=== PATIENT | female | born 1955 | race Caucasian/White ===

== ENCOUNTER 2019-08-16 05:27 | Outpatient (CLI) | payer OTHER | END 2019-08-16 05:28 | disposition critical access hospital (66) | LOC: EMS 05:27 | PROVIDERS: ATTEND Surgery | DX: R50.9 Fever, unspecified (principal); R05 Cough; R11.2 Nausea with vomiting, unspecified; R29.6 Repeated falls | CPT/HCPCS: A0425; A0427 ==

== ENCOUNTER 2019-08-16 05:29 | Inpatient (IN) | payer OTHER ==
[2019-08-16 06:42] LABS: BASOPHILS # (AUTO) 0.1 10^3/uL (0.0-0.1); BASOPHILS % (AUTO) 0.4 %; EOSINOPHILS # (AUTO) 0.3 10^3/uL (0.0-0.7); EOSINOPHILS % (AUTO) 2.1 %; LYMPHOCYTES # (AUTO) 0.7 10^3/uL (1.5-3.5); LYMPHOCYTES % (AUTO) 5.5 %; MEAN CORPUSCULAR HEMOGLOBIN 28.8 pg (27.0-31.0); MEAN CORPUSCULAR HGB CONC 33.3 g/dL (32.0-36.0); MEAN CORPUSCULAR VOLUME 86.4 fL (81.0-99.0); MEAN PLATELET VOLUME 10.6 fL (7.9-10.8); MONOCYTES # (AUTO) 1.2 10^3/uL (0.0-1.0); MONOCYTES % (AUTO) 9.2 %; NEUTROPHILS # (AUTO) 10.4 10^3/uL (1.5-6.6); NEUTROPHILS % (AUTO) 82.2 %; PLT - PLATELET COUNT 228 10^3/uL (130-450); RED BLOOD COUNT 5.21 10^6/uL (4.20-5.40); RED CELL DISTRIBUTION WIDTH 11.9 % (12.0-15.0); WHITE BLOOD COUNT 12.6 x10^3/uL (4.8-10.8)
[2019-08-16 06:50] LABS: ALBUMIN 3.3 g/dL (3.2-5.5); ALBUMIN/GLOBULIN RATIO 0.9 (1.0-2.2); BILIRUBIN,TOTAL 1.3 mg/dL (0.2-1.0); CALCIUM 8.1 mg/dL (8.5-10.3); CREATININE 1.8 mg/dL (0.4-1.0)
[2019-08-16 07:28] LABS: PLATELET ESTIMATE, MANUAL NORMAL (130-450,000) (NORMAL); PLATELET MORPHOLOGY NORMAL APPEARANCE (NORMAL); RBC MORPHOLOGY (MULTIPLE) NORMAL APPEARANCE (NORMAL)
--- NOTE | 2019-08-16 07:39 | XRAY Report ---
Reason: cough, fatigue, hypoxia Procedure Date: 08/16/2019 Accession Number: [id number] / [id number] Procedure: XR - Chest 2 View X-Ray CPT Code: 75291 Final Report FULL RESULT: EXAM: CHEST RADIOGRAPHY EXAM DATE: 08/16/2019 07:02 AM. CLINICAL HISTORY: Cough, fatigue, hypoxia. COMPARISON: None. TECHNIQUE: 2 views. FINDINGS: Lungs/Pleura: No focal opacities evident. No peribronchial cuffing or interstitial abnormality. No pleural effusion. No pneumothorax. Normal volumes. Mediastinum: Heart size is normal. Retrocardiac density measuring about 9 cm which may represent a hiatal hernia. Other: None. IMPRESSION: 1. Lungs are clear. 2. Approximately 9 cm retrocardiac density which may represent a hiatal hernia. CT or esophagram could be used to further assess. RADIA
[2019-08-16] MEDS ORDERED: POTASSIUM CHLORIDE 20 MEQ TABLET PO ONE (07:51)
--- NOTE | 2019-08-16 07:52 | ED Physician Documentation ---
PD HPI NVD - Stated complaint Stated Complaint: FEVER, N/V/D - Chief complaint Chief Complaint: Abd Pain - History obtained from History obtained from: Patient - History of Present Illness Timing - onset: How many days ago (5) Timing - duration: Days (5) Timing - details: Gradual onset, Still present Associated symptoms: Dizzy, Near syncope / syncope, Loss of appetite Contributing factors: No: Sick contact, Bad food, Travel, Recent antibiotics, Alcohol use, Anticoagulated, Diabetes Improved by: Vomiting Similar symptoms before: Has not had sx before Recently seen: Not recently seen - Additonal information Additional information: 63-year-old female with a history of recurrent shingles has developed symptoms about 5 days ago and she has now developed nausea and vomiting and diarrhea that occurred over the past 5 days. She today had a syncopal episode on the way into the bathroom. She fell and hit her head. She is uncertain if she lost consciousness. She is having some trouble concentrating and remembering details. She states that her urine is foul-smelling and it hurts to urinate. She has started valacyclovir 5-day get this ago for shingles on her lower back. She describes having migrating shingles and frequent episodes. Surgically she has had a Janna, appendectomy and hysterectomy previously Review of Systems Constitutional: reports: Myalgias, Fatigue. denies: Fever, Chills Eyes: denies: Decreased vision Ears: denies: Ear pain Nose: denies: Rhinorrhea / runny nose, Congestion Throat: denies: Sore throat Cardiac: denies: Chest pain / pressure, Palpitations Respiratory: reports: Cough. denies: Dyspnea GI: reports: Abdominal Pain, Nausea, Vomiting : reports: Dysuria, Frequency Skin: denies: Rash Musculoskeletal: reports: Neck pain, Back pain Neurologic: denies: Generalized weakness, Focal weakness, Numbness PD PAST MEDICAL HISTORY - Past Medical History Cardiovascular: None Respiratory: Sleep apnea, CPAP use Endocrine/Autoimmune: HyPOthyroidism GI: GERD Psych: None Musculoskeletal: Osteoarthritis Derm: Eczema, Rosacea Other Past Medical History: Shingles - Past Surgical History General: Cholecystectomy, Appendectomy Ortho: Arthroscopic surgery /[employer]WARE[employer]EL[employer]: section, Tubal ligation, Hysterectomy, Oophrectomy, Other Neuro: Other HEENT: Tonsil/Adenoidectomy - Present Medications Home Medications: Ambulatory Orders Medication Instructions Recorded Confirmed Cyclobenzaprine [Flexeril] 10 mg PO TID PRN 03/26/13 03/26/13 Hyoscyamine [Levsin] 0.125 mg SL BID PRN 03/26/13 03/26/13 Levothyroxine [Synthroid] 75 mcg PO QDAC 03/26/13 03/26/13 Losartan [Cozaar] 50 mg PO DAILY 03/26/13 03/26/13 Pregabalin [Lyrica] 150 TID 03/26/13 03/26/13 Zolpidem [Ambien] 10 mg PO HS 03/26/13 03/26/13 oxyCODONE [Roxicodone] 5 mg PO Q4-6H PRN 04/08/13 04/08/13 oxyCODONE/ACET 5/325 [Percocet 5 1 each PO Q4-6H 04/08/13 04/08/13 mg/325 mg] - Allergies Allergies/Adverse Reactions: Allergies Allergy/AdvReac Type Severity Reaction Status Date / Time adhesive Allergy Severe Rash Verified 08/16/19 05:35 latex Allergy Severe Rash Verified 08/16/19 05:35 morphine Allergy Severe Respiratory Verified 08/16/19 05:35 Sulfa (Sulfonamide Allergy Severe anaphylaxis Verified 08/16/19 05:35 Antibiotics) - Social History Does the pt smoke?: Yes Smoking Status: Current every day smoker Does the pt drink ETOH?: No Does the pt have substance abuse?: No - Immunizations Immunizations are current?: No - POLST Patient has POLST: No PD ED PE NORMAL - Vitals Vital signs reviewed: Yes (tachy and hypertensive ) - General General: Alert and oriented X 3, No acute distress, Well developed/nourished - HEENT HEENT: PERRL, EOMI - Cardiac Cardiac: No murmur, Other (tachy to 100) - Respiratory Respiratory: No respiratory distress, Clear bilaterally - Abdomen Abdomen: Soft, Other (mild epigastric tenderness.) - Back Back: No CVA TTP, No spinal TTP - Derm Derm: Normal color, Warm and dry, No rash (specifically no changes to the skin over the lower back where the shingles pain is. ) - Extremities Extremities: No deformity, No edema, No calf tenderness / cord - Neuro Neuro: Alert and oriented X 3, featherer 2-12 intact, No motor deficit, No sensory deficit, Normal speech Eye Opening: Spontaneous Motor: Obeys Commands Verbal: Oriented GCS Score: 15 - Psych Psych: Normal mood, Normal affect Results - Vitals Vitals: Vital Signs - 24 hr 08/16/19 08/16/19 08/16/19 05:32 06:03 09:13 Temperature 36.8 C 37.7 C H Heart Rate 121 H 121 H 108 H Respiratory 20 28 H 20 Rate Blood Pressure 115/68 107/71 108/79 O2 Saturation 90 L 99 94 Oxygen O2 Source Nasal cannula - Labs Labs: Laboratory Tests 08/16/19 08/16/19 08/16/19 05:50 05:50 05:50 WBC 12.6 H RBC 5.21 Hgb 15.0 Hct 45.0 MCV 86.4 MCH 28.8 MCHC 33.3 RDW 11.9 L Plt Count 228 MPV 10.6 Neut # (Auto) 10.4 H Lymph # (Auto) 0.7 L Nuckolls # (Auto) 1.2 H Eos # (Auto) 0.3 Baso # (Auto) 0.1 Absolute Nucleated RBC 0.00 Nucleated RBC % 0.0 Manual Slide Review Indicated WBC Morphology Platelet Estimate NORMAL (130-450,000) Platelet Morphology NORMAL APPEARANCE RBC Morph Micro Appear NORMAL APPEARANCE Sodium 133 L Potassium 2.7 L Chloride 96 L Carbon Dioxide 23 Anion Gap 14.0 H BUN 20 Creatinine 1.8 H Estimated GFR (MDRD) 28 L Glucose 141 H Lactic Acid 1.7 Calcium 8.1 L Total Bilirubin 1.3 H AST 46 H ALT 38 Alkaline Phosphatase 82 Total Protein 7.0 Albumin 3.3 Globulin 3.7 Albumin/Globulin Ratio 0.9 L Lipase 28 Urine Color Urine Clarity Urine pH Ur Specific Shushan Urine Protein Urine Glucose (UA) Urine Ketones Urine Occult Blood Urine Nitrite Urine Bilirubin Urine Urobilinogen Ur Leukocyte Esterase Urine RBC Urine WBC Ur Squamous Epith Cells Urine Bacteria Ur Microscopic Review Urine Culture Comments 08/16/19 09:42 WBC RBC Hgb Hct MCV MCH MCHC RDW Plt Count MPV Neut # (Auto) Lymph # (Auto) Nuckolls # (Auto) Eos # (Auto) Baso # (Auto) Absolute Nucleated RBC Nucleated RBC % Manual Slide Review WBC Morphology Platelet Estimate Platelet Morphology RBC Morph Micro Appear Sodium Potassium Chloride Carbon Dioxide Anion Gap BUN Creatinine Estimated GFR (MDRD) Glucose Lactic Acid Calcium Total Bilirubin AST ALT Alkaline Phosphatase Total Protein Albumin Globulin Albumin/Globulin Ratio Lipase Urine Color YELLOW Urine Clarity CLOUDY Urine pH 6.0 Ur Specific Shushan 1.025 Urine Protein 100 H Urine Glucose (UA) NEGATIVE Urine Ketones NEGATIVE Urine Occult Blood MODERATE H Urine Nitrite NEGATIVE Urine Bilirubin NEGATIVE Urine Urobilinogen 0.2 (NORMAL) Ur Leukocyte Esterase LARGE H Urine RBC 11-25 H Urine WBC >25 H Ur Squamous Epith Cells MANY Squamous H Urine Bacteria Moderate H Ur Microscopic Review INDICATED Urine Culture Comments NOT INDICATED - Rads (name of study) CT chest w/o Radiology: Prelim report reviewed (Impression: 1. Moderate sized hiatal hernia corresponding to the retrocardiac density seen on same-day chest radiograph. 4 mm sub-solid nodule in the anterior left upper lobe. No routine follow-up imaging is needed for an incidental nodule with these characteristics per 2017 Fleischner cytocide the guidelines however, these guidelines do not apply of the patient has a known history of malignancy.), EMP read indepedently, See rad report CT head without Radiology: Prelim report reviewed (Impression: 1. No acute intracranial abnormality is identified. 2. no acute fracture.), EMP read indepedently, See rad report CT cervical spine Radiology: Prelim report reviewed (Impression: 1. No acute cervical spine abnormalities are identified. Mild degenerative changes of the cervical spine.), EMP read indepedently, See rad report 1 view chest Radiology: Prelim report reviewed (Impression: 1. Lungs are clear. 2. Approximately 9 cm retrocardiac density which may represent a hiatal hernia. CT or esophagram could be useful to further assess.), EMP read indepedently, See rad report Procedures - IVC sono (time) 0740 Bedside IVC sono: IVC measures (cm) (1.11), Dehydration (est 1-2 liter deficit after one liter in.) PD MEDICAL DECISION MAKING - ED course Complexity details: reviewed old records, reviewed results, re-evaluated patient, considered differential, d/w patient ED course: 63-year old female with 5 days of nausea and vomiting is profoundly dehydrated o n arrival to the emergency department and she has had a syncopal episode and head injury. She arrives tachycardic and hypoxic and she is provided saline hydration as well as potassium. She is eventually able to produce urine which shows obvious infection. She is administered Rocephin intravenously. She remains somewhat confused CT of head and neck are without finding and admission to the hospitalist is sought. Departure - Departure Disposition: 66 [facility] DC/Xfer Clinical Impression: Syncope and collapse, Dehydration Urinary tract infection Qualifiers: Urinary tract infection type: acute cystitis Hematuria presence: without hematuria Qualified Code(s): N30.00 - Acute cystitis without hematuria Altered mental status Qualifiers: Altered mental status type: transient alteration of awareness Qualified Code(s): R40.4 - Transient alteration of awareness
[2019-08-16] MEDS: SODIUM CHLORIDE 0.9% 1,000 ML IV ONE (08:57)
--- NOTE | 2019-08-16 09:06 | CT Report ---
Reason: syncope head injury ALOC Procedure Date: 08/16/2019 Accession Number: [id number] / [id number] Procedure: CT - HEAD WO CPT Code: Final Report FULL RESULT: EXAM: CT HEAD EXAM DATE: 08/16/2019 08:11 AM. CLINICAL HISTORY: Syncope head injury ALOC. Neck pain. Hit right frontal/parietal area. COMPARISON: None. TECHNIQUE: Multiaxial CT images were obtained from the foramen magnum to the vertex. Reformats: Sagittal and coronal. IV contrast: None. In accordance with CT protocol optimization, one or more of the following dose reduction techniques were utilized for this exam: automated exposure control, adjustment of mA and/or KV based on patient size, or use of iterative reconstructive technique. FINDINGS: Parenchyma: No intraparenchymal hemorrhage. No evidence of mass, midline shift, or CT findings of infarction. Navas-white differentiation is distinct. Extraaxial Spaces: Normal for age. No subdural or epidural collections identified. Ventricles: Normal in size and position. Sinuses and Orbits: Osteoma within the left anterior ethmoid and left frontal sinus. Otherwise paranasal sinuses and mastoid air cells are clear. Bones: No evidence of fracture or calvarial defect. Other: Globes and orbits are unremarkable. IMPRESSION: 1. No acute intracranial abnormality is identified. 2. No acute fracture. RADIA
--- NOTE | 2019-08-16 09:07 | CT Report ---
Reason: mass on x-ray hypoxia Procedure Date: 08/16/2019 Accession Number: [id number] / [id number] Procedure: CT - CHEST WO CPT Code: Final Report FULL RESULT: EXAM: CT CHEST EXAM DATE: 08/16/2019 08:30 AM. CLINICAL HISTORY: Mass on chest x-ray. Hypoxia. COMPARISONS: CHEST 2 VIEW 08/16/2019 6:51 AM. TECHNIQUE: Routine helical CT imaging was performed through the chest. IV contrast: None. Reconstructions: Coronal and sagittal. In accordance with CT protocol optimization, one or more of the following dose reduction techniques were utilized for this exam: automated exposure control, adjustment of mA and/or KV based on patient size, or use of iterative reconstructive technique. FINDINGS: Thyroid Gland: Unremarkable as visualized. Lungs/Pleura: 4 mm subsolid nodule in the anterior left upper lobe (4/133). Right upper and lower lobes and posterior right middle lobe. No focal infiltrate, pleural effusion, or pneumothorax. Heart and Great Vessels: Heart size is normal. No pericardial effusion. Mild atherosclerotic calcifications within the aortic arch. Variant aortic arch anatomy, with common origin of the innominate and left common carotid arteries. No aortic aneurysm. Thoracic Lymph Nodes: No adenopathy. Visualized Upper Abdomen: Moderate sized hiatal hernia containing fat and the proximal stomach. Post cholecystectomy. Bones: No significant abnormality. Other: Surgical clips in the bilateral breasts. IMPRESSION: 1. Moderate-sized hiatal hernia corresponding to the retrocardiac density seen on same-day chest radiograph. 2. 4 mm subsolid nodule in the anterior left upper lobe. No routine follow-up imaging is needed for an incidental nodule with these characteristics per 2017 Fleischner Society guidelines, however, these guidelines do not apply if the patient has a known history of malignancy. RADIA
--- NOTE | 2019-08-16 09:09 | CT Report ---
Reason: syncope head injury neck pain Procedure Date: 08/16/2019 Accession Number: [id number] / [id number] Procedure: CT - CERVICAL SPINE WO CPT Code: Final Report FULL RESULT: EXAM: CT CERVICAL SPINE WITHOUT CONTRAST DATE: 08/16/2019 08:11 AM. HISTORY: Syncope head injury neck pain. COMPARISONS: None. TECHNIQUE: Thin-section axial images were acquired of the cervical spine without contrast. Post-processing: Coronal and sagittal reformats. Other: None. In accordance with CT protocol optimization, one or more of the following dose reduction techniques were utilized for this exam: automated exposure control, adjustment of mA and/or KV based on patient size, or use of iterative reconstructive technique. FINDINGS: Alignment: No scoliosis or spondylolisthesis. Bones: Degenerative osteophyte formation. Hemangioma within C3. Interspace Levels/Facets: Mild degenerative changes with disk space narrowing at C5-C6 and C6-C7. Mild multilevel facet arthropathy. Musculature: Normal. No fatty atrophy. Other: The paravertebral and prevertebral soft tissues are unremarkable. Lung apices are clear. Airways are clear. Vascular calcifications. No enlarged cervical lymph nodes. Skull base is unremarkable. IMPRESSION: 1. No acute cervical spine abnormalities are identified. 2. Mild degenerative changes of the cervical spine. RADIA
[2019-08-16 09:50] LABS: BILIRUBIN,URINE NEGATIVE (NEGATIVE); GLUCOSE, URINE (UA) NEGATIVE (NEGATIVE); KETONES,URINE (UA) NEGATIVE (NEGATIVE); LEUKOCYTE ESTERASE, URINE LARGE (NEGATIVE); NITRITE,URINE NEGATIVE (NEGATIVE); OCCULT BLOOD,URINE MODERATE (NEGATIVE); PROTEIN,URINE 100 mg/dL (NEGATIVE); UROBILINOGEN,URINE 0.2 (NORMAL) E.U./dL (NORMAL)
[2019-08-16 09:52] LABS: CLARITY,URINE CLOUDY (CLEAR)
[2019-08-16 09:56] LABS: SQUAMOUS EPITHELIAL CELL,UR MANY Squamous (<= Few)
[2019-08-16 09:57] LABS: BACTERIA,URINE Moderate /HPF (None Seen)
[2019-08-16] MEDS ORDERED: cefTRIAXone 1 GM in SODIUM CHLORIDE 0.9% MINIBAG 100 ML IV STA (10:03)
[2019-08-16] MEDS ORDERED: PHENAZOPYRIDINE 100 MG TABLET PO SCH (13:00)
--- NOTE | 2019-08-16 13:24 | PHARMACY PROGRESS NOTE ---
- Best Possible Medication History Admit Date and Time: 08/16/19 1216 Processed by: Pharmacy Medication History completed: Yes Patient Interview: Pt unable to participate Secondary Source(s): Pharmacy records, Insurance records As the person ultimately responsible for medication therapy, providers are able to order a medication from an existing home medication list in [facility] via the "Reconcile Routine" prior to Confirmation of that medication by customer support professional. Such practice is discouraged except when the physician, in their clinical judgment, deems that a medical need exists for a medication without regard to previous use.
[2019-08-16] MEDS: POTASSIUM CHLOR 10 MEQ/100 ML 10 MEQ/100 ML BAG IV SCH ×4 (14:06→17:53)
[2019-08-16] MEDS: D5NS W/20 MEQ KCL 1,000 ML IV SCH ×2 (14:06→23:06)
[2019-08-16] MEDS: valACYclovir 500 MG TABLET PO SCH (14:07)
[2019-08-16] MEDS: PREGABALIN 25 MG CAPSULE PO SCH ×2 (14:08→21:20)
[2019-08-16] MEDS: PREGABALIN 100 MG CAPSULE PO SCH ×2 (14:45→21:21)
--- NOTE | 2019-08-16 16:20 | HISTORY & PHYSICAL EXAMINATION ---
DATE OF SERVICE: 08/16/2019 Physician: Kika Mcmillan MD HISTORY OF PRESENT ILLNESS: This is a 63-year-old, white female with a history of shingles, for which she was recently started on valacyclovir. She also has a history of Synthroid, glucoma and hypertension, and is on HCTZ and an ARB. Patient called an ambulance after feeling weak and having a syncopal episode, was walking and has syncope and hit her head. She has been having 3 days of nausea, vomiting and diarrhea and the ambulance documented a fever at home of 102.5. She presented to the emergency room by ambulance, where she was found to have tachycardia with a heart rate of 121, fever of 37.7 which later increased to 40.2 degrees centigrade, and she did have desaturation to 88% on room air. She did admit to a cough but was confused and disoriented in the ER and not steady on her feet when trying to go to the bathroom in the emergency room. Her workup shows that she has a urinary tract infection with abnormal urinalysis, hypokalemia and acute kidney injury. She had imaging done of her head and C- spine because of the syncope, and this showed no acute findings. She has been started on IV fluids, potassium replacement and IV antibiotics. PAST MEDICAL HISTORY: Hypertension, hypothyroidism, Glaucoma, recent shingles. MEDICATIONS 1. Flexeril 10 mg t.i.d. p.r.n. muscle spasm. 2. HCTZ 25 mg daily. 3. Losartan 100 mg daily. 4. Levothyroxine 75 mcg daily. 5. Lyrica 150 mg t.i.d. 6. Valacyclovir 500 mg b.i.d. 7. Ambien 10 mg q.p.m. p.r.n. insomnia. 8. Trusopt eye drops 9. Latanoprost eye drops 10. Timolol eye drops FAMILY HISTORY: No inherited diseases. SOCIAL HISTORY: She lives with her . Details of her social history are currently not available because she is alone in the room and still confused. REVIEW OF SYSTEMS: A comprehensive review of systems was performed and the pertinent positives are in the HPI, the rest are negative. PHYSICAL EXAMINATION GENERAL: White female who is responding and talkative, but is confused and disoriented. VITAL SIGNS: Blood pressure 110/58, heart rate now 110 in sinus tachycardia, temperature 1 hour ago was 40.2 centigrade, respiratory rate 28, oxygen saturation 96% on 3 liters of oxygen. HEENT: Reveals dry oral mucosa. NECK: No JVD. CHEST: Clear. HEART: Tachycardic. No murmurs. ABDOMEN: Soft, nontender. EXTREMITIES: No clubbing, cyanosis or edema. NEUROLOGIC: Generalized disorientation, nonfocal muscle exam. LABORATORY DATA: Sodium 133, potassium 2.7, anion gap 14, BUN 20, creatinine 1.8, glucose 141. Lactic acid 1.7, magnesium 2.0, bilirubin 1.3, AST 46 with normal ALT of 38, lipase normal at 28. White blood count 12.6, hemoglobin 15, platelet count 228. There is a left shift of neutrophils. Urinalysis: High protein, moderate occult blood, large leukocyte esterase, negative nitrite and moderate bacteria present. Chest x-ray: No active pulmonary disease. C-spine and head CT: No evidence of trauma or bleeding. Chest CT was done, which shows a hiatal hernia in the thorax and an incidental nodule in the left upper lobe, no infiltrate. No EKG was done. IMPRESSION/DIAGNOSES 1. Severe sepsis by virtue of elevated white blood count, urinary tract infection and organ dysfunction. 2. Urinary tract infection. 3. Dehydration. 4. Acute kidney injury. 5. Nausea, vomiting. 6. Diarrhea. 7. Syncope. 8. Hypokalemia. 9. Hyponatremia. 10. Cough 11. Desaturation of oxygen 12. Altered mental status/confusion. 13. Shingles. 14. Hypothyroidism. 15. History of hypertension. 16. Elevated bilirubin. PLAN: Admit the patient to telemetry, medical/surgical inpatient status. Continue with IV fluids aggressively. Replace potassium with iv runners. Follow her electrolytes daily. Obtain blood cultures and await the urine that was sent for culture. Continue with her empiric IV ceftriaxone treatment. Obtain cultures of the diarrheal stools. She was swabbed for COVID because of the desaturation and fever and cough, and therefore will begin isolation precautions. Continue with her medications for thyroid replacement and shingles, but hold her HCTZ and losartan since there is a need for volume replacement currently. Follow her liver function tests regarding the elevated bilirubin, but this may be a phase reactant. Treat with antiemetics p.r.n. and only a clear liquid diet currently, then advance diet as tolerated. CODE STATUS: FULL CODE. DEEP VENOUS THROMBOSIS PROPHYLAXIS: SCDs. ATTESTATION: The patient is expected to be discharged or transferred to another facility within 96 hours: Yes. cc: Ihsan Mckeon MD TD: 08/16/2019 16:02 MTDD
[2019-08-16] MEDS: SODIUM CHLORIDE FLUSH 0.9% 10 ML SYRINGE IVP SCH (17:08)
[2019-08-16] MEDS: ACETAMINOPHEN 325 MG TABLET PO PRN (20:25)
[2019-08-16] MEDS: FAMOTIDINE 20 MG/2 ML SYRINGE IVP SCH (21:20)
[2019-08-16] MEDS: LATANOPROST 0.005% OPHTH DROPS EACHEYE SCH (21:21)
[2019-08-16] MEDS: ZOLPIDEM 5 MG TABLET PO SCH (21:40)
[2019-08-17] MEDS ORDERED: SODIUM CHLORIDE 0.9% 1,000 ML IV ONE ×3 (00:49→07:44)
[2019-08-17] MEDS: SODIUM CHLORIDE FLUSH 0.9% 10 ML SYRINGE IVP SCH ×4 (00:59→21:47)
[2019-08-17] MEDS: valACYclovir 500 MG TABLET PO SCH ×2 (00:59→13:31)
[2019-08-17] MEDS ORDERED: SODIUM CHLORIDE 0.9% 500 ML IV ONE ×2 (02:08→07:44)
[2019-08-17] MEDS ORDERED: VANCOMYCIN INJ 1.25 GM in SODIUM CHLORIDE 0.9% 250 ML IV SCH (03:00)
[2019-08-17] MEDS ORDERED: PIPERACILLIN/TAZOBACTAM 3.375 GM in SODIUM CHLORIDE 0.9% MINIBAG 100 ML IV ONE (03:00)
--- NOTE | 2019-08-17 03:43 | XRAY Report ---
Reason: hypoxia Procedure Date: 08/17/2019 Accession Number: [id number] / [id number] Procedure: XR - Chest 1 View X-Ray CPT Code: 06126 Final Report FULL RESULT: EXAM: CHEST RADIOGRAPHY EXAM DATE: 08/17/2019 02:54 AM. CLINICAL HISTORY: Hypoxia. COMPARISON: CHEST WO 08/16/2019 8:16 AM CHEST 2 VIEW 08/16/2019 6:51 AM. TECHNIQUE: 1 view. FINDINGS: Lungs/Pleura: New interstitial opacities bilaterally. No focal consolidation, effusion, or pneumothorax. Mediastinum: Stable hiatal hernia. No cardiomegaly. Atherosclerotic calcifications. Other: None. IMPRESSION: New interstitial opacities bilaterally, without evidence of congestive failure. Consider viral or atypical infectious process in the appropriate clinical scenario. RADIA
[2019-08-17] MEDS: ACETAMINOPHEN 325 MG TABLET PO PRN ×4 (05:36→22:57)
[2019-08-17 06:41] LABS: BASOPHILS % (AUTO) 0.4 %; EOSINOPHILS % (AUTO) 1.2 %; HGB - HEMOGLOBIN 10.7 g/dL (12.0-16.0); LYMPHOCYTES % (AUTO) 4.1 %; MEAN CORPUSCULAR HEMOGLOBIN 28.6 pg (27.0-31.0); MEAN CORPUSCULAR HGB CONC 32.5 g/dL (32.0-36.0); MEAN PLATELET VOLUME 10.6 fL (7.9-10.8); MONOCYTES % (AUTO) 10.1 %; NEUTROPHILS % (AUTO) 83.7 %; PLT - PLATELET COUNT 160 10^3/uL (130-450); RED BLOOD COUNT 3.74 10^6/uL (4.20-5.40); RED CELL DISTRIBUTION WIDTH 12.1 % (12.0-15.0); WHITE BLOOD COUNT 9.9 x10^3/uL (4.8-10.8)
[2019-08-17 06:51] LABS: ALBUMIN 2.2 g/dL (3.2-5.5); ALBUMIN/GLOBULIN RATIO 0.8 (1.0-2.2); BILIRUBIN,TOTAL 0.7 mg/dL (0.2-1.0); CALCIUM 6.7 mg/dL (8.5-10.3); CREATININE 1.6 mg/dL (0.4-1.0); MAGNESIUM 1.7 mg/dL (1.7-2.8)
[2019-08-17 06:54] LABS: INR 1.3 (0.8-1.2); PT - PROTHROMBIN TIME 14.3 secs (9.9-12.6)
[2019-08-17] MEDS: PREGABALIN 25 MG CAPSULE PO SCH ×3 (06:58→21:41)
[2019-08-17] MEDS: LEVOTHYROXINE 75 MCG TABLET PO SCH (06:58)
[2019-08-17] MEDS: PREGABALIN 100 MG CAPSULE PO SCH ×3 (06:58→21:40)
[2019-08-17] MEDS: PIPERACILLIN/TAZOBACTAM 3.375 GM in SODIUM CHLORIDE 0.9% MINIBAG 100 ML IV SCH ×3 (07:00→22:58)
[2019-08-17 07:01] LABS: ABNORMAL LYMPHS % (MANUAL) 1 %; BAND NEUTROPHILS % (MANUAL) 3 %; LYMPHOCYTES # (MANUAL) 0.5 10^3/uL (1.5-3.5); LYMPHOCYTES % (MANUAL) 4 %; MONOCYTES # (MANUAL) 0.6 10^3/uL (0.0-1.0)
[2019-08-17 07:02] LABS: DIFFERENTIAL COMMENT MANUAL DIFFERENTIAL; PLATELET ESTIMATE, MANUAL NORMAL (130-450,000) (NORMAL); PLATELET MORPHOLOGY NORMAL APPEARANCE (NORMAL); RBC MORPHOLOGY (MULTIPLE) NORMAL APPEARANCE (NORMAL)
[2019-08-17] MEDS ORDERED: cefTRIAXone 1 GM in SODIUM CHLORIDE 0.9% MINIBAG 100 ML IV SCH (09:00)
--- NOTE | 2019-08-17 09:19 | PROVIDER PROGRESS NOTE ---
Assessment/Plan - Problem List (1) Severe sepsis Assessment/Plan: She continues to have abnormal white count, abnormal vital signs and evidence of organ dysfunction. Today she may also be in septic shock. She is in critical condition. Continue with IV fluids, broadened IV antibiotics, ICU care, supplemental oxygen, needs CVP line (2) Hypotension Assessment/Plan: This is likely a combination of septic shock and dehydration. She was moved to the ICU overnight. She will have a CVP line inserted by Anesthesia today. She is in critical condition. Her home HCTZ and ARB are on hold. (3) Interstitial pneumonia Assessment/Plan: CXR was done overnight When her blood pressure was low and she started to desaturate. She has required increased oxygen supplemental from nasal cannula and is now on Ventimask. Her COVID swab from yesterday has resulted and is neg but with this chest x-ray she very likely has COVID pneumonia, and a false neg COVID result. We will start to suggest proning (she is not on a vent however). Continue supplemental oxygen. Will add Zithromax. Her antibiotics were already broadened with Rocephin continued (for the UTI) and added Vancomycin iv We will not add Hydroxychloroquine. Will continue isolation. Will retest for COVID in 24-48 hours. (4) Urinary tract infection Qualifiers: Urinary tract infection type: acute cystitis Hematuria presence: without hematuria Qualified Code(s): N30.00 - Acute cystitis without hematuria Assessment/Plan: She did did complain of significant dysuria. Pyridium could not be given because of her EDITH. Continue iv Ceftriaxone. Await urine and blood cx (5) EDITH (acute kidney injury) Assessment/Plan: Slightly improved BUN and creatinine since admission, 20/1.8>> 19/1.6 Continue with IV fluids. Follow BMP daily (6) Syncope and collapse Assessment/Plan: Telemetry shows no dangerous arrhythmias. She likely had orthostasis causing the syncope. Blood pressure still low here and being managed as above (7) Anemia Assessment/Plan: She is already 5.7 L in positive fluid balance since admission, which was less than 12 hours ago. Suspect this is hemodilutional anemia. Follow H/H daily (8) Hypokalemia Assessment/Plan: From potassium losses in vomiting and diarrhea at home and less than adequate IV replacement. We will replace K with runners. Follow BMP daily. (9) Dehydration Assessment/Plan: From vomiting and diarrhea x3 days and from insensible fluid loss due to her fever. Continue with rehydration (10) Altered mental status Qualifiers: Altered mental status type: transient alteration of awareness Qualified Code(s): R40.4 - Transient alteration of awareness Assessment/Plan: This is likely a metabolic encephalopathy due to her sepsis, shock and active infection. (11) Diarrhea Assessment/Plan: Stool cultures ordered and are pending. Isolation continues. Continue with rehydration and electrolyte replacement. (12) N&V (nausea and vomiting) Assessment/Plan: Improved or resolved. Continue with PRN antiemetics. (13) Hypothyroidism Assessment/Plan: Her home dose of Synthroid was continued. (14) Shingles Assessment/Plan: Her home doses of Valacyclovir and pain medications were continued. - Current Meds Current Meds: Current Medications Generic Name Dose Route Start Last Admin Trade Name Freq PRN Reason Stop Dose Admin Acetaminophen 650 mg 08/16/19 20:09 08/17/19 05:36 Tylenol PO 650 mg Q6HR PRN Administration Pain or Fever > 38C (100.4F) Famotidine 20 mg 08/16/19 21:00 08/16/19 21:20 Pepcid IVP 20 mg BID ERIC Administration Potassium Chloride/Dextrose/Sod Cl 1,000 mls @ 125 mls/hr 08/16/19 13:00 08/17/19 07:00 IV 125 mls/hr .Q8H ERIC Infusion Piperacillin Sod/Tazobactam 100 mls @ 25 mls/hr 08/17/19 07:00 08/17/19 07:00 Sod 3.375 gm/ Sodium Chloride IV 25 mls/hr Q8H ERIC Administration Vancomycin HCl 1.25 gm/ Sodium 250 mls @ 166.667 mls/hr 08/17/19 03:00 08/17/19 07:00 Chloride IV Infused Q36H ERIC Infusion Latanoprost 1 drops 08/16/19 21:00 08/16/19 21:21 Xalatan Ophth Drops EACHEYE 1 drops QPM ERIC Administration Levothyroxine Sodium 75 mcg 08/17/19 07:00 08/17/19 06:58 Synthroid PO 75 mcg QDAC ERIC Administration Pregabalin 100 mg 08/16/19 14:00 08/17/19 06:58 Lyrica PO 100 mg TID ERIC Administration Pregabalin 50 mg 08/16/19 14:00 08/17/19 06:58 Lyrica PO 50 mg TID ERIC Administration Sodium Chloride 10 ml 08/16/19 17:00 08/17/19 00:59 Normal Saline Flush 0.9% IVP 10 ml 0100,0900,1700 ERIC Administration Valacyclovir HCl 500 mg 08/16/19 13:00 08/17/19 00:59 Valtrex PO Not Given Q12H ERIC Zolpidem Tartrate 10 mg 08/16/19 21:00 08/16/19 21:40 Ambien PO Not Given QPM ERIC - Lab Result Fish Bone Diagrams: 08/17/19 06:35 08/17/19 06:35 - Additional Planning My Orders: My Active Orders 08/16/19 12:18 Activity Orders [RC] Q2HR Initiate Bowel Care Protocol [RC] .protocol Initiate Personal Care Protoco [RC] .protocol Oxygen Therapy [RC] Routine Telemetry- [RC] Q4HR Vital Signs [RC] Q1H Ondansetron Inj [Zofran Inj] 4 mg IVP Q6HR PRN Prochlorperazine Inj [Compazine Inj] 10 mg IVP Q6HR PRN Sodium Chloride Flush 0.9% [Normal Saline Flush 0.9%] 10 ml IVP PRN PRN Code Status [OTHERS] Routine Condition of Patient [OTHERS] Routine DVT Prophylaxis [OTHERS] Routine 08/16/19 12:19 Daily Weight [RC] 0600 IV Insert [RC] .ONCE 08/16/19 12:20 SCDs [RC] QSHIFT 08/16/19 12:21 Initiate Line Care Protocol [RC] QSHIFT 08/16/19 12:22 Isolation [Infection Precautions] [RC] ONCE 08/16/19 12:25 CUL, STOOL [CULTURE, STOOL] [] Routine 08/16/19 13:00 D5ns W/20 Meq KCl 1,000 ml IV 125 mls/hr valACYclovir [Valtrex] 500 mg PO Q12H 08/16/19 14:00 Pregabalin [Lyrica] 100 mg PO TID Pregabalin [Lyrica] 50 mg PO TID 08/16/19 16:14 CULTURE, BLOOD #1 [RM] Stat 08/16/19 17:00 Sodium Chloride Flush 0.9% [Normal Saline Flush 0.9%] 10 ml IVP 0100,0900,1700 08/16/19 21:00 Famotidine [Pepcid] 20 mg IVP BID Latanoprost 0.005% Ophth Drops [Xalatan Ophth Drops] 1 drops EACHEYE QPM Zolpidem [Ambien] 10 mg PO QPM 08/16/19 Dinner Clear Liquid Diet [DIET] 08/17/19 07:00 Levothyroxine [Synthroid] 75 mcg PO QDAC 08/17/19 09:00 Chest 1 View X-Ray [XR] DAILY Dorzolamide 2% Ophth Drops [Trusopt 2% Ophth Drops] 1 drops EACHEYE DAILY Timolol 0.5% Ophth Drops [Timoptic 0.5% Ophth Drops] 1 drops EACHEYE DAILY 08/17/19 09:14 Central Line Insertion [RC] ONCE 08/18/19 05:00 CBC - COMP BLD CT W/AUTO DIFF [HEME] DAILYLAB CMP [COMPREHENSIVE METABOLIC PANEL] [CHEM] DAILYLAB MAGNESIUM [CHEM] DAILYLAB 08/19/19 05:00 CBC - COMP BLD CT W/AUTO DIFF [HEME] DAILYLAB CMP [COMPREHENSIVE METABOLIC PANEL] [CHEM] DAILYLAB MAGNESIUM [CHEM] DAILYLAB Subjective - Subjective Patient Reports: Shortness of Breath, Other (No more nausea) Nursing Reports: Other (Less confused, is hungry) Objective Vital Signs: Vital Signs - 24 hr 08/16/19 08/16/19 08/16/19 12:00 13:30 14:00 Temperature 39.5 C H 40.2 C H Heart Rate 110 H Heart Rate [ Brachial] Heart Rate [ Monitoring electrodes] Heart Rate [ 122 H 122 H Radial] Respiratory 20 26 H 28 H Rate Blood Pressure 110/58 L Blood Pressure 114/69 106/68 [Right Brachial artery] O2 Saturation 94 96 96 08/16/19 08/16/19 08/16/19 14:59 15:51 19:43 Temperature 38.5 C H 39.4 C H Heart Rate Heart Rate [ Brachial] Heart Rate [ Monitoring electrodes] Heart Rate [ 115 H 106 H 111 H Radial] Respiratory 26 H 26 H 24 Rate Blood Pressure Blood Pressure 98/56 L 102/58 L [Right Brachial artery] O2 Saturation 96 98 97 08/16/19 08/17/19 08/17/19 21:27 00:35 00:40 Temperature 37.9 C H 36.6 C Heart Rate Heart Rate [ Brachial] Heart Rate [ Monitoring electrodes] Heart Rate [ 79 Radial] Respiratory 22 Rate Blood Pressure Blood Pressure 81/53 L 78/47 L [Right Brachial artery] O2 Saturation 89 L 95 08/17/19 08/17/19 08/17/19 00:46 00:53 01:01 Temperature Heart Rate Heart Rate [ Brachial] Heart Rate [ Monitoring electrodes] Heart Rate [ Radial] Respiratory Rate Blood Pressure Blood Pressure 81/47 L 81/46 L 79/43 L [Right Brachial artery] O2 Saturation 96 08/17/19 08/17/19 08/17/19 01:18 01:30 01:45 Temperature 36.9 C Heart Rate Heart Rate [ Brachial] Heart Rate [ Monitoring electrodes] Heart Rate [ Radial] Respiratory Rate Blood Pressure Blood Pressure 77/47 L 79/42 L [Right Brachial artery] O2 Saturation 08/17/19 08/17/19 08/17/19 01:49 03:30 04:00 Temperature Heart Rate Heart Rate [ 95 100 Brachial] Heart Rate [ Monitoring electrodes] Heart Rate [ Radial] Respiratory 22 17 Rate Blood Pressure Blood Pressure 84/49 L 92/59 L 91/79 [Right Brachial artery] O2 Saturation 94 95 08/17/19 08/17/19 08/17/19 05:00 05:30 06:00 Temperature 38.6 C H Heart Rate Heart Rate [ 110 H 110 H Brachial] Heart Rate [ Monitoring electrodes] Heart Rate [ Radial] Respiratory 21 23 Rate Blood Pressure Blood Pressure 76/53 L 101/70 [Right Brachial artery] O2 Saturation 93 99 08/17/19 08/17/19 07:00 08:00 Temperature 38.4 C H 38.3 C H Heart Rate Heart Rate [ Brachial] Heart Rate [ 98 97 Monitoring electrodes] Heart Rate [ Radial] Respiratory 23 20 Rate Blood Pressure Blood Pressure 98/62 87/50 L [Right Brachial artery] O2 Saturation 100 98 Oxygen O2 Source Nasal cannula Oxygen Flow Rate 2 I&O (Last 24 Hrs): Intake and Output Totals x24h 08/15/19 08/16/19 08/17/19 23:59 23:59 23:59 Intake Total 2660 3942.5 Output Total 500 200 Balance 2160 3742.5 General: Alert, Oriented x3 HEENT: Other (Dry mucosa) Neck: Supple Neuro: Alert, Non Focal, Other (Forgetful) Cardiovascular: Regular rate, No murmurs Respiratory: No respiratory distress, Other (R base crackles) Abdomen: Normal bowel sounds, Soft, Other (Obese with pannus) Extremities: No edema Skin: No rashes - Results Results: Laboratory Results WBC 9.9 x10^3/uL (4.8-10.8) 08/17/19 06:35 RBC 3.74 10^6/uL (4.20-5.40) L 08/17/19 06:35 Hgb 10.7 g/dL (12.0-16.0) L 08/17/19 06:35 Hct 32.9 % (37.0-47.0) L 08/17/19 06:35 MCV 88.0 fL (81.0-99.0) 08/17/19 06:35 MCH 28.6 pg (27.0-31.0) 08/17/19 06:35 MCHC 32.5 g/dL (32.0-36.0) 08/17/19 06:35 RDW 12.1 % (12.0-15.0) 08/17/19 06:35 Plt Count 160 10^3/uL (130-450) 08/17/19 06:35 MPV 10.6 fL (7.9-10.8) 08/17/19 06:35 Neut # (Auto) Not Reportable 08/17/19 06:35 Lymph # (Auto) Not Reportable 08/17/19 06:35 [place] # (Auto) Not Reportable 08/17/19 06:35 Eos # (Auto) Not Reportable 08/17/19 06:35 Baso # (Auto) Not Reportable 08/17/19 06:35 Absolute Nucleated RBC Not Reportable 08/17/19 06:35 Total Counted 100 08/17/19 06:35 Band Neuts % (Manual) 3 % (0-10) 08/17/19 06:35 Abnorm Lymph % (Manual) 1 % 08/17/19 06:35 Nucleated RBC % Not Reportable 08/17/19 06:35 Neutrophils # (Manual) 8.8 10^3/uL (1.5-6.6) H 08/17/19 06:35 Lymphocytes # (Manual) 0.5 10^3/uL (1.5-3.5) L 08/17/19 06:35 Monocytes # (Manual) 0.6 10^3/uL (0.0-1.0) 08/17/19 06:35 Eosinophils # (Manual) 0.0 10^3/uL (0-0.7) 08/17/19 06:35 Basophils # (Manual) 0.0 10^3/uL (0-0.1) 08/17/19 06:35 Differential Comment MANUAL DIFFERENTIAL 08/17/19 06:35 Manual Slide Review Indicated 08/16/19 05:50 WBC Morphology NORMAL APPEARANCE (NORMAL) 08/17/19 06:35 Platelet Estimate NORMAL (130-450,000) (NORMAL) 08/17/19 06:35 Platelet Morphology NORMAL APPEARANCE (NORMAL) 08/17/19 06:35 RBC Morph Micro Appear NORMAL APPEARANCE (NORMAL) 08/17/19 06:35 PT 14.3 secs (9.9-12.6) H 08/17/19 06:35 INR 1.3 (0.8-1.2) H 08/17/19 06:35 Sodium 138 mmol/L (135-145) 08/17/19 06:35 Potassium 3.3 mmol/L (3.5-5.0) L 08/17/19 06:35 Chloride 111 mmol/L (101-111) 08/17/19 06:35 Carbon Dioxide 18 mmol/L (21-32) L 08/17/19 06:35 Anion Gap 9.0 (6-13) 08/17/19 06:35 BUN 19 mg/dL (6-20) 08/17/19 06:35 Creatinine 1.6 mg/dL (0.4-1.0) H 08/17/19 06:35 Estimated GFR (MDRD) 32 (>89) L 08/17/19 06:35 Glucose 137 mg/dL (70-100) H 08/17/19 06:35 Lactic Acid 1.3 mmol/L (0.5-2.2) 08/17/19 06:35 Calcium 6.7 mg/dL (8.5-10.3) L 08/17/19 06:35 Magnesium 1.7 mg/dL (1.7-2.8) 08/17/19 06:35 Total Bilirubin 0.7 mg/dL (0.2-1.0) 08/17/19 06:35 AST 48 IU/L (10-42) H 08/17/19 06:35 ALT 39 IU/L (10-60) 08/17/19 06:35 Alkaline Phosphatase 58 IU/L (42-121) 08/17/19 06:35 Total Protein 5.0 g/dL (6.7-8.2) L 08/17/19 06:35 Albumin 2.2 g/dL (3.2-5.5) L 08/17/19 06:35 Globulin 2.8 g/dL (2.1-4.2) 08/17/19 06:35 Albumin/Globulin Ratio 0.8 (1.0-2.2) L 08/17/19 06:35 Lipase 28 U/L (22-51) 08/16/19 05:50 Urine Color YELLOW 08/16/19 09:42 Urine Clarity CLOUDY (CLEAR) 08/16/19 09:42 Urine pH 6.0 PH (5.0-7.5) 08/16/19 09:42 Ur Specific [place] 1.025 (1.002-1.030) 08/16/19 09:42 Urine Protein 100 mg/dL (NEGATIVE) H 08/16/19 09:42 Urine Glucose (UA) NEGATIVE mg/dL (NEGATIVE) 08/16/19 09:42 Urine Ketones NEGATIVE mg/dL (NEGATIVE) 08/16/19 09:42 Urine Occult Blood MODERATE (NEGATIVE) H 08/16/19 09:42 Urine Nitrite NEGATIVE (NEGATIVE) 08/16/19 09:42 Urine Bilirubin NEGATIVE (NEGATIVE) 08/16/19 09:42 Urine Urobilinogen 0.2 (NORMAL) E.U./dL (NORMAL) 08/16/19 09:42 Ur Leukocyte Esterase LARGE (NEGATIVE) H 08/16/19 09:42 Urine RBC 11-25 /HPF (0-5) H 08/16/19 09:42 Urine WBC >25 /HPF (0-5) H 08/16/19 09:42 Ur Squamous Epith Cells MANY Squamous (<= Few) H 08/16/19 09:42 Urine Bacteria Moderate /HPF (None Seen) H 08/16/19 09:42 Ur Microscopic Review INDICATED 08/16/19 09:42 Urine Culture Comments NOT INDICATED 08/16/19 09:42 Influenza A (Rapid) Negative (Negative) 08/16/19 17:00 Influenza B (Rapid) Negative (Negative) 08/16/19 17:00 - Procedures Procedures: Procedures TOTAL KNEE REPLACEMENT (03/26/13)
--- NOTE | 2019-08-17 09:35 | XRAY Report ---
Reason: F/U for infiltrate, has cough, is rehydrated Procedure Date: 08/17/2019 Accession Number: [id number] / [id number] Procedure: XR - Chest 1 View X-Ray CPT Code: 80318 Final Report FULL RESULT: EXAM: CHEST RADIOGRAPHY EXAM DATE: 08/17/2019 09:08 AM. CLINICAL HISTORY: F/U for infiltrate, has cough, is rehydrated. COMPARISON: CHEST 1 VIEW 08/17/2019 2:22 AM CHEST WO 08/16/2019 8:16 AM. TECHNIQUE: 1 view. FINDINGS: Lungs/Pleura: Increased lung markings. No focal opacities. No effusions Mediastinum: Stable. Large hiatal hernia. Other: Right IJ catheter with catheter tip in the superior vena cava. Cholecystectomy clips. Right chest surgical clips. IMPRESSION: 1. Stable chest. 2. Airways disease RADIA
[2019-08-17] MEDS: FAMOTIDINE 20 MG/2 ML SYRINGE IVP SCH ×2 (10:00→21:41)
[2019-08-17] MEDS: DORZOLAMIDE 2% OPHTH DROPS EACHEYE SCH (10:02)
[2019-08-17] MEDS: TIMOLOL 0.5% OPHTH DROPS EACHEYE SCH (10:02)
--- NOTE | 2019-08-17 10:44 | ANESTHESIA PROCEDURE NOTE ---
Anesth Central Line Template - Central Line Central Line Preparation: Consent Obtained, Ultrasound used, Sterile prep and drape Central line location: Right IJ Central line type: Triple lumen Central line catheter tip site resides: Superior vena cava (SVC) Central line aftercare: Chlorhexidine disc placed, Secured, Placement confirmed, No pneumothorax, No complications, Bundle checklist complete, Pt tolerated well
[2019-08-17] MEDS: SODIUM CHLORIDE 0.9% 1,000 ML IV ONE (10:57)
[2019-08-17] MEDS: D5NS W/20 MEQ KCL 1,000 ML IV SCH ×3 (10:58→21:39)
[2019-08-17] MEDS: AZITHROMYCIN INJ 500 MG in SODIUM CHLORIDE 0.9% 250 ML IV SCH (11:05)
[2019-08-17] MEDS: ZOLPIDEM 5 MG TABLET PO SCH (21:41)
[2019-08-17] MEDS: LATANOPROST 0.005% OPHTH DROPS EACHEYE SCH (21:43)
[2019-08-18] MEDS: valACYclovir 500 MG TABLET PO SCH ×2 (00:19→13:21)
[2019-08-18] MEDS: SODIUM CHLORIDE 0.9% 500 ML IV PRN (04:47)
[2019-08-18] MEDS ORDERED: VANCOMYCIN INJ 1 GM, VANCOMYCIN INJ 250 MG in SODIUM CHLORIDE 0.9% 250 ML IV SCH (05:00)
[2019-08-18] MEDS: D5NS W/20 MEQ KCL 1,000 ML IV SCH ×2 (05:05→12:53)
[2019-08-18 05:13] LABS: BASOPHILS % (AUTO) 0.4 %; EOSINOPHILS % (AUTO) 0.4 %; HGB - HEMOGLOBIN 10.4 g/dL (12.0-16.0); LYMPHOCYTES # (AUTO) 0.6 10^3/uL (1.5-3.5); MEAN CORPUSCULAR HEMOGLOBIN 27.9 pg (27.0-31.0); MEAN CORPUSCULAR HGB CONC 31.5 g/dL (32.0-36.0); MEAN CORPUSCULAR VOLUME 88.5 fL (81.0-99.0); MEAN PLATELET VOLUME 11.2 fL (7.9-10.8); MONOCYTES % (AUTO) 11.6 %; NEUTROPHILS # (AUTO) 7.1 10^3/uL (1.5-6.6); NEUTROPHILS % (AUTO) 79.9 %; PLT - PLATELET COUNT 168 10^3/uL (130-450); RED BLOOD COUNT 3.73 10^6/uL (4.20-5.40); RED CELL DISTRIBUTION WIDTH 12.6 % (12.0-15.0); WHITE BLOOD COUNT 8.9 x10^3/uL (4.8-10.8)
[2019-08-18 05:25] LABS: ALBUMIN 2.2 g/dL (3.2-5.5); ALBUMIN/GLOBULIN RATIO 0.8 (1.0-2.2); ALKALINE PHOSPHATASE 63 IU/L (42-121); ALT ALANINE AMINOTRANSFERASE 41 IU/L (10-60); AST ASPARTATE AMINOTRANSFERASE 44 IU/L (10-42); BILIRUBIN,TOTAL < 0.2 mg/dL (0.2-1.0); BUN - BLOOD UREA NITROGEN 11 mg/dL (6-20); CALCIUM 7.1 mg/dL (8.5-10.3); CARBON DIOXIDE - CO2 19 mmol/L (21-32); CHLORIDE 115 mmol/L (101-111); CREATININE 1.3 mg/dL (0.4-1.0); GLUCOSE 111 mg/dL (70-100); MAGNESIUM 1.7 mg/dL (1.7-2.8); SODIUM 138 mmol/L (135-145); TOTAL PROTEIN 5.1 g/dL (6.7-8.2)
[2019-08-18] MEDS: PREGABALIN 25 MG CAPSULE PO SCH ×3 (06:12→20:27)
[2019-08-18] MEDS: LEVOTHYROXINE 75 MCG TABLET PO SCH (06:13)
[2019-08-18] MEDS: PREGABALIN 100 MG CAPSULE PO SCH ×2 (06:13→13:20)
[2019-08-18] MEDS: PIPERACILLIN/TAZOBACTAM 3.375 GM in SODIUM CHLORIDE 0.9% MINIBAG 100 ML IV SCH ×2 (06:17→15:54)
[2019-08-18] MEDS: FAMOTIDINE 20 MG/2 ML SYRINGE IVP SCH ×2 (08:35→20:15)
[2019-08-18] MEDS: SODIUM CHLORIDE FLUSH 0.9% 10 ML SYRINGE IVP SCH ×2 (08:35→18:16)
[2019-08-18] MEDS: ACETAMINOPHEN 325 MG TABLET PO PRN ×2 (08:36→20:26)
[2019-08-18] MEDS: DORZOLAMIDE 2% OPHTH DROPS EACHEYE SCH (08:38)
[2019-08-18] MEDS: TIMOLOL 0.5% OPHTH DROPS EACHEYE SCH (08:38)
--- NOTE | 2019-08-18 10:54 | PROVIDER PROGRESS NOTE ---
Assessment/Plan - Problem List (1) Altered mental status Qualifiers: Altered mental status type: transient alteration of awareness Qualified Code(s): R40.4 - Transient alteration of awareness Assessment/Plan: She is very confused today, the RN thinks it could be from getting Ambien at at bedtime which is 1 of her home meds therefoore it was dosed last night. Ambien may have been adding to her home confusional state. We will stop the Ambien. a head CT was done 2 days ago, at admission, due to her fall, and was unremarkable. She has no localizing neuro signs. Continue to treat underlying dehydration and infection. Will order Haldol prn restlessness/agitation. COVID retesting ordered, since strokes have been reported even in non-elderly with COVID infection. Her admission COVID result was neg, but it may be a false negative. (2) Severe sepsis Assessment/Plan: WBC improved, no fever, but is still tachycardic. Continue broad spectrum antibx and iv fluids (3) Interstitial pneumonia Assessment/Plan: She is on Zithromax as well as broad spectrum iv empiric antbx coverage. COVID retest ordered today, since her clinical picture is so similar to COVID, and I suspect her result was false neg at admission. (4) Urinary tract infection Qualifiers: Urinary tract infection type: acute cystitis Hematuria presence: without hematuria Qualified Code(s): N30.00 - Acute cystitis without hematuria (5) EDITH (acute kidney injury) Assessment/Plan: Improving BUN/creat daily, since started iv fluids and vomiting and diarrhea stopped. Will decrease IV rate. Follow BMMP daily. (6) Anemia Assessment/Plan: Suspect hemodilutional since she is (+)13 L in fluid balance as of today since admission. Follow CNC daily. (7) Dehydration Assessment/Plan: She is (+)13 L in fluid balance as of today since admission. her creat is improving daily. Will decrease fluid rate. (8) Syncope and collapse Assessment/Plan: This was her sx at home. here, she has not been OOB yet: yesterday due to persistent hypotension and today due to delerium. (9) Hypothyroidism Assessment/Plan: Her med was resumed (10) Shingles Assessment/Plan: Her meds were resumed (11) Hypotension Assessment/Plan: Resolved. She is (+)13 L in fluid balance as of today since admission. (12) N&V (nausea and vomiting) Assessment/Plan: Resolved (13) Diarrhea Assessment/Plan: Resolved. Stool cx are unremarkable (14) Hypokalemia Assessment/Plan: Resolved with replacement. Follow BMP daily. - Current Meds Current Meds: Current Medications Generic Name Dose Route Start Last Admin Trade Name Freq PRN Reason Stop Dose Admin Acetaminophen 650 mg 08/16/19 20:09 08/18/19 08:36 Tylenol PO 650 mg Q6HR PRN Administration Pain or Fever > 38C (100.4F) Dorzolamide HCl 1 drops 08/17/19 09:00 08/18/19 08:38 Trusopt 2% Ophth Drops EACHEYE 1 drops DAILY ERIC Administration Famotidine 20 mg 08/16/19 21:00 08/18/19 08:35 Pepcid IVP 20 mg BID ERIC Administration Potassium Chloride/Dextrose/Sod Cl 1,000 mls @ 125 mls/hr 08/16/19 13:00 08/18/19 05:05 IV 125 mls/hr .Q8H ERIC Administration Piperacillin Sod/Tazobactam 100 mls @ 25 mls/hr 08/17/19 07:00 08/18/19 06:17 Sod 3.375 gm/ Sodium Chloride IV 25 mls/hr Q8H ERCI Administration Azithromycin 500 mg/ Sodium 250 mls @ 250 mls/hr 08/17/19 12:00 08/17/19 13:00 Chloride IV 08/20/19 00:00 Infused Q24H ERIC Infusion Sodium Chloride 500 mls @ 0 mls/hr 08/17/19 22:00 08/18/19 04:47 Normal Saline 0.9% IV 20 mls/hr Q24H PRN Administration TKO RATE TKO Latanoprost 1 drops 08/16/19 21:00 08/17/19 21:43 Xalatan Ophth Drops EACHEYE 1 drops QPM ERIC Administration Levothyroxine Sodium 75 mcg 08/17/19 07:00 08/18/19 06:13 Synthroid PO 75 mcg QDAC ERIC Administration Pregabalin 100 mg 08/16/19 14:00 08/18/19 06:13 Lyrica PO 100 mg TID ERIC Administration Pregabalin 50 mg 08/16/19 14:00 08/18/19 06:12 Lyrica PO 50 mg TID ERIC Administration Sodium Chloride 10 ml 08/16/19 17:00 08/18/19 08:35 Normal Saline Flush 0.9% IVP 10 ml 0100,0900,1700 ERIC Administration Timolol Maleate 1 drops 08/17/19 09:00 08/18/19 08:38 Timoptic 0.5% Ophth Drops EACHEYE 1 drops DAILY ERIC Administration Valacyclovir HCl 500 mg 08/16/19 13:00 08/18/19 00:19 Valtrex PO 500 mg Q12H ERIC Administration - Lab Result Fish Bone Diagrams: 08/18/19 04:38 08/18/19 04:38 - Additional Planning My Orders: My Active Orders 08/17/19 10:15 Miscellaenous Nursing Order [RC] QSHIFT 08/17/19 10:22 Miscellaenous Nursing Order [RC] ONCE 08/17/19 12:00 Azithromycin Inj [Zithromax Inj] 500 mg Sodium Chloride 0.9% [Normal Saline 0.9%] 250 ml IV Q24H 08/17/19 14:30 Miscellaenous Nursing Order [RC] ONCE 08/17/19 15:47 CUL, STOOL [CULTURE, STOOL] [RM] Routine 08/17/19 Dinner DIET [Soft (Low Fiber) Diet] [DIET] 08/18/19 COVID-19 REFERENCE TEST Routine 08/19/19 01:00 Vancomycin Inj [Vancomycin] 1 gm Vancomycin Inj 500 mg Sodium Chloride 0.9% [Normal Saline 0.9%] 500 ml IV Q24H 08/19/19 05:00 CBC - COMP BLD CT W/AUTO DIFF [HEME] DAILYLAB CMP [COMPREHENSIVE METABOLIC PANEL] [CHEM] DAILYLAB MAGNESIUM [CHEM] DAILYLAB Subjective - Subjective Patient Reports: Other (Is restless and more confused) Nursing Reports: Confused (more than yesterday.), Other (No N/V, eating 25-50% of food) Objective Vital Signs: Vital Signs - 24 hr 08/17/19 08/17/19 08/17/19 11:00 12:00 13:05 Temperature 39.3 C H Heart Rate [ 106 H 100 Monitoring electrodes] Respiratory 16 26 H Rate Blood Pressure 113/64 102/56 L 94/64 [Right Brachial artery] O2 Saturation 96 98 08/17/19 08/17/19 08/17/19 14:00 15:00 16:00 Temperature 37.4 C 36.8 C Heart Rate [ 90 91 96 Monitoring electrodes] Respiratory 17 16 27 H Rate Blood Pressure 87/53 L 88/53 L 99/63 [Right Brachial artery] O2 Saturation 97 98 98 08/17/19 08/17/19 08/17/19 17:00 18:00 18:09 Temperature Heart Rate [ 100 102 H 102 H Monitoring electrodes] Respiratory 29 H 22 22 Rate Blood Pressure 94/58 L 111/56 L 111/56 L [Right Brachial artery] O2 Saturation 98 100 100 08/17/19 08/17/19 08/17/19 19:13 20:00 21:00 Temperature 37 C Heart Rate [ 91 90 91 Monitoring electrodes] Respiratory 13 25 H 23 Rate Blood Pressure 102/60 99/64 101/68 [Right Brachial artery] O2 Saturation 98 100 100 08/17/19 08/17/19 08/18/19 22:10 23:00 00:00 Temperature 37 C 37.5 C 37 C Heart Rate [ 98 101 H 92 Monitoring electrodes] Respiratory 22 22 20 Rate Blood Pressure 102/61 138/84 H 103/60 [Right Brachial artery] O2 Saturation 100 100 98 08/18/19 08/18/19 08/18/19 01:00 02:00 03:00 Temperature 37.0 C Heart Rate [ 104 H 100 101 H Monitoring electrodes] Respiratory 23 22 21 Rate Blood Pressure 97/57 L 116/68 118/64 [Right Brachial artery] O2 Saturation 95 99 100 08/18/19 08/18/19 08/18/19 04:00 05:00 06:00 Temperature 37 C 37 C 37 C Heart Rate [ 100 105 H 102 H Monitoring electrodes] Respiratory 23 22 16 Rate Blood Pressure 111/64 118/66 101/86 H [Right Brachial artery] O2 Saturation 98 98 99 08/18/19 08/18/19 08/18/19 07:00 08:00 09:00 Temperature 37.8 C H Heart Rate [ 108 H 112 H 112 H Monitoring electrodes] Respiratory 25 H 20 22 Rate Blood Pressure 122/77 119/73 119/99 H [Right Brachial artery] O2 Saturation 96 98 99 08/18/19 10:00 Temperature Heart Rate [ 112 H Monitoring electrodes] Respiratory 19 Rate Blood Pressure 119/71 [Right Brachial artery] O2 Saturation 94 Oxygen O2 Source Room air Oxygen Flow Rate 2 I&O (Last 24 Hrs): Intake and Output Totals x24h 08/16/19 08/17/19 08/18/19 23:59 23:59 23:59 Intake Total 2660 9827.083 2134.167 Output Total 500 854 750 Balance 2160 8973.083 1384.167 General: No acute distress HEENT: Other (Dry) Neck: Supple Neuro: Disoriented Cardiovascular: Regular rate Respiratory: Other (On O2 nc.c) Abdomen: Other (Obese) Extremities: No edema - Results Results: Laboratory Results WBC 8.9 x10^3/uL (4.8-10.8) 08/18/19 04:38 RBC 3.73 10^6/uL (4.20-5.40) L 08/18/19 04:38 Hgb 10.4 g/dL (12.0-16.0) L 08/18/19 04:38 Hct 33.0 % (37.0-47.0) L 08/18/19 04:38 MCV 88.5 fL (81.0-99.0) 08/18/19 04:38 MCH 27.9 pg (27.0-31.0) 08/18/19 04:38 MCHC 31.5 g/dL (32.0-36.0) L 08/18/19 04:38 RDW 12.6 % (12.0-15.0) 08/18/19 04:38 Plt Count 168 10^3/uL (130-450) 08/18/19 04:38 MPV 11.2 fL (7.9-10.8) H 08/18/19 04:38 Neut # (Auto) 7.1 10^3/uL (1.5-6.6) H 08/18/19 04:38 Lymph # (Auto) 0.6 10^3/uL (1.5-3.5) L 08/18/19 04:38 [place] # (Auto) 1.0 10^3/uL (0.0-1.0) 08/18/19 04:38 Eos # (Auto) 0.0 10^3/uL (0.0-0.7) 08/18/19 04:38 Baso # (Auto) 0.0 10^3/uL (0.0-0.1) 08/18/19 04:38 Absolute Nucleated RBC 0.00 x10^3/uL 08/18/19 04:38 Total Counted 100 08/17/19 06:35 Band Neuts % (Manual) 3 % (0-10) 08/17/19 06:35 Abnorm Lymph % (Manual) 1 % 08/17/19 06:35 Nucleated RBC % 0.0 /100WBC 08/18/19 04:38 Neutrophils # (Manual) 8.8 10^3/uL (1.5-6.6) H 08/17/19 06:35 Lymphocytes # (Manual) 0.5 10^3/uL (1.5-3.5) L 08/17/19 06:35 Monocytes # (Manual) 0.6 10^3/uL (0.0-1.0) 08/17/19 06:35 Eosinophils # (Manual) 0.0 10^3/uL (0-0.7) 08/17/19 06:35 Basophils # (Manual) 0.0 10^3/uL (0-0.1) 08/17/19 06:35 Differential Comment MANUAL DIFFERENTIAL 08/17/19 06:35 Manual Slide Review Indicated 08/16/19 05:50 WBC Morphology NORMAL APPEARANCE (NORMAL) 08/17/19 06:35 Platelet Estimate NORMAL (130-450,000) (NORMAL) 08/17/19 06:35 Platelet Morphology NORMAL APPEARANCE (NORMAL) 08/17/19 06:35 RBC Morph Micro Appear NORMAL APPEARANCE (NORMAL) 08/17/19 06:35 PT 14.3 secs (9.9-12.6) H 08/17/19 06:35 INR 1.3 (0.8-1.2) H 08/17/19 06:35 Sodium 138 mmol/L (135-145) 08/18/19 04:38 Potassium 3.6 mmol/L (3.5-5.0) 08/18/19 04:38 Chloride 115 mmol/L (101-111) H 08/18/19 04:38 Carbon Dioxide 19 mmol/L (21-32) L 08/18/19 04:38 Anion Gap 4.0 (6-13) L 08/18/19 04:38 BUN 11 mg/dL (6-20) 08/18/19 04:38 Creatinine 1.3 mg/dL (0.4-1.0) H 08/18/19 04:38 Estimated GFR (MDRD) 41 (>89) L 08/18/19 04:38 Glucose 111 mg/dL (70-100) H 08/18/19 04:38 Lactic Acid 1.3 mmol/L (0.5-2.2) 08/17/19 06:35 Calcium 7.1 mg/dL (8.5-10.3) L 08/18/19 04:38 Magnesium 1.7 mg/dL (1.7-2.8) 08/18/19 04:38 Total Bilirubin < 0.2 mg/dL (0.2-1.0) L 08/18/19 04:38 AST 44 IU/L (10-42) H 08/18/19 04:38 ALT 41 IU/L (10-60) 08/18/19 04:38 Alkaline Phosphatase 63 IU/L (42-121) 08/18/19 04:38 Total Protein 5.1 g/dL (6.7-8.2) L 08/18/19 04:38 Albumin 2.2 g/dL (3.2-5.5) L 08/18/19 04:38 Globulin 2.9 g/dL (2.1-4.2) 08/18/19 04:38 Albumin/Globulin Ratio 0.8 (1.0-2.2) L 08/18/19 04:38 Lipase 28 U/L (22-51) 08/16/19 05:50 Urine Color YELLOW 08/16/19 09:42 Urine Clarity CLOUDY (CLEAR) 08/16/19 09:42 Urine pH 6.0 PH (5.0-7.5) 08/16/19 09:42 Ur Specific [place] 1.025 (1.002-1.030) 08/16/19 09:42 Urine Protein 100 mg/dL (NEGATIVE) H 08/16/19 09:42 Urine Glucose (UA) NEGATIVE mg/dL (NEGATIVE) 08/16/19 09:42 Urine Ketones NEGATIVE mg/dL (NEGATIVE) 08/16/19 09:42 Urine Occult Blood MODERATE (NEGATIVE) H 08/16/19 09:42 Urine Nitrite NEGATIVE (NEGATIVE) 08/16/19 09:42 Urine Bilirubin NEGATIVE (NEGATIVE) 08/16/19 09:42 Urine Urobilinogen 0.2 (NORMAL) E.U./dL (NORMAL) 08/16/19 09:42 Ur Leukocyte Esterase LARGE (NEGATIVE) H 08/16/19 09:42 Urine RBC 11-25 /HPF (0-5) H 08/16/19 09:42 Urine WBC >25 /HPF (0-5) H 08/16/19 09:42 Ur Squamous Epith Cells MANY Squamous (<= Few) H 08/16/19 09:42 Urine Bacteria Moderate /HPF (None Seen) H 08/16/19 09:42 Ur Microscopic Review INDICATED 08/16/19 09:42 Urine Culture Comments NOT INDICATED 08/16/19 09:42 Nasal Screen MRSA (PCR) NEGATIVE (NEGATIVE) 08/17/19 14:35 Coronavirus (PCR) NEGATIVE 08/16/19 06:48 Influenza A (Rapid) Negative (Negative) 08/16/19 17:00 Influenza B (Rapid) Negative (Negative) 08/16/19 17:00 - Procedures Procedures: Procedures TOTAL KNEE REPLACEMENT (03/26/13)
[2019-08-18] MEDS: AZITHROMYCIN INJ 500 MG in SODIUM CHLORIDE 0.9% 250 ML IV SCH (12:52)
[2019-08-18] MEDS ORDERED: D5NS W/20 MEQ KCL 1,000 ML IV SCH (17:42)
[2019-08-18] MEDS: LATANOPROST 0.005% OPHTH DROPS EACHEYE SCH (20:16)
[2019-08-18] MEDS ORDERED: PREGABALIN 100 MG CAPSULE PO SCH (21:00)
[2019-08-18] MEDS: HALOPERIDOL 5 MG/ML VIAL IVP PRN (21:21)
[2019-08-18] MEDS: PROCHLORPERAZINE 10 MG/2 ML VIAL IVP PRN (21:31)
[2019-08-19] MEDS: valACYclovir 500 MG TABLET PO SCH ×2 (00:58→14:01)
[2019-08-19] MEDS: SODIUM CHLORIDE FLUSH 0.9% 10 ML SYRINGE IVP SCH ×3 (00:59→17:17)
[2019-08-19] MEDS ORDERED: VANCOMYCIN INJ 1 GM, VANCOMYCIN INJ 500 MG in SODIUM CHLORIDE 0.9% 500 ML IV SCH (01:00)
[2019-08-19] MEDS: ACETAMINOPHEN 325 MG TABLET PO PRN ×2 (03:29→18:09)
[2019-08-19] MEDS: PIPERACILLIN/TAZOBACTAM 3.375 GM in SODIUM CHLORIDE 0.9% MINIBAG 100 ML IV SCH ×4 (03:33→23:23)
--- NOTE | 2019-08-19 04:24 | XRAY Report ---
Reason: wheezing Procedure Date: 08/19/2019 Accession Number: [id number] / [id number] Procedure: XR - Chest 1 View X-Ray CPT Code: [id number] Final Report FULL RESULT: EXAM: CHEST RADIOGRAPHY EXAM DATE: 08/19/2019 04:00 AM. CLINICAL HISTORY: Wheezing. COMPARISON: CHEST 1 VIEW 08/17/2019 8:42 AM. TECHNIQUE: 1 view. FINDINGS: The right internal jugular approach and a venous catheter tip overlies the superior vena cava. The heart size is within normal limits. A large hiatal hernia is again seen. The interstitial lung markings remain increased suggesting pulmonary vascular congestion. There is no focal consolidation, pleural effusion, or pneumothorax. Left breast surgical clips are reidentified. IMPRESSION: Prominent interstitial opacities, likely pulmonary vascular congestion. RADIA
[2019-08-19] MEDS ORDERED: FUROSEMIDE 20 MG/2 ML VIAL IVP STA ×2 (04:28→12:25)
[2019-08-19] MEDS: SODIUM CHLORIDE FLUSH 0.9% 10 ML SYRINGE IVP PRN ×2 (04:46→04:47)
[2019-08-19 05:22] LABS: BASOPHILS # (AUTO) 0.1 10^3/uL (0.0-0.1); BASOPHILS % (AUTO) 0.5 %; EOSINOPHILS # (AUTO) 0.1 10^3/uL (0.0-0.7); HGB - HEMOGLOBIN 10.7 g/dL (12.0-16.0); LYMPHOCYTES # (AUTO) 0.8 10^3/uL (1.5-3.5); LYMPHOCYTES % (AUTO) 7.1 %; MEAN CORPUSCULAR HGB CONC 31.8 g/dL (32.0-36.0); MEAN CORPUSCULAR VOLUME 88.2 fL (81.0-99.0); MEAN PLATELET VOLUME 10.9 fL (7.9-10.8); MONOCYTES # (AUTO) 1.1 10^3/uL (0.0-1.0); MONOCYTES % (AUTO) 10.6 %; NEUTROPHILS # (AUTO) 8.4 10^3/uL (1.5-6.6); NEUTROPHILS % (AUTO) 79.4 %; PLT - PLATELET COUNT 205 10^3/uL (130-450); RED BLOOD COUNT 3.82 10^6/uL (4.20-5.40); RED CELL DISTRIBUTION WIDTH 13.1 % (12.0-15.0); WHITE BLOOD COUNT 10.6 x10^3/uL (4.8-10.8)
[2019-08-19 05:34] LABS: ALBUMIN 2.1 g/dL (3.2-5.5); ALBUMIN/GLOBULIN RATIO 0.6 (1.0-2.2); BILIRUBIN,TOTAL 0.6 mg/dL (0.2-1.0); CALCIUM 7.1 mg/dL (8.5-10.3); CREATININE 1.1 mg/dL (0.4-1.0); MAGNESIUM 1.8 mg/dL (1.7-2.8); TOTAL PROTEIN 5.5 g/dL (6.7-8.2)
[2019-08-19] MEDS: LEVOTHYROXINE 75 MCG TABLET PO SCH (06:28)
[2019-08-19] MEDS: PREGABALIN 25 MG CAPSULE PO SCH (06:29)
[2019-08-19] MEDS ORDERED: POTASSIUM CHLORIDE 20 MEQ TABLET PO SCH (08:00)
--- NOTE | 2019-08-19 08:19 | PROVIDER PROGRESS NOTE ---
Assessment/Plan - Problem List (1) Dyspnea Assessment/Plan: She developed worsening SOB overnight. A CXR was done and showed volume overload. Her iv fluids were stopped and she got Lasix iv x1. At mid-day she again had feeling of SOB. O2 was increased but she still had air hunger. ABG ordered and showed stable pH and good oxygenation and pCO2. Troponins, BNP and EKG ordered and showed NSR, early R/S transition. Will check a d-dimer. Lasix iv repeated and Cisneros ordered for dyspnea. CPAP started by RT and she felt better. Will give CPAP occais for several hours and overnight. Continue empiric antibiotics with Zithromax and Cetriaxone, will stop Vanco (neg MRSA swab). Her son wanted an update, he is a Pediatric Resident. I called and had to leave a message. (2) Abnormal EKG Assessment/Plan: Her EKG shows early R/S transition. 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 An Echo would be helpful, but since she may have COVID, will not expose the Echo machine to her room, as per ACC/AHA guidelines during COVID pandemic. (3) Altered mental status Qualifiers: Altered mental status type: transient alteration of awareness Qualified Code(s): R40.4 - Transient alteration of awareness Assessment/Plan: This patient was confused at home, presumably due to fever, infection and hypotension. She was confused in the ER. She had a lucid day on 08/17/2019 then was confused again yesterday 08/18/19, this may have been from being on Ambien and Lyrica. Ambien has been stopped and and Lyrica has been decreased. She had a fall at home before admission and head CT and C-spine had already been done, these were unremarkable at admission. Remain in ICU. Neuro checks to watch for any focal deficits. (4) Severe sepsis Assessment/Plan: She spiked a fever overnight of 38.4. She is still tachycardic. Continue treating UTI and her pulmonary infiltrates. Remain in the ICU. (5) Interstitial pneumonia Assessment/Plan: She got aggressive IV saline fluid replacement at admission for hypotension and then blossomed into bilateral interstitial pneumonia which worsened every day along with her fever earlier this admission. Her COVID swab from the ER done 08/16/19, returned negative but it is probably a false negative since her entire clinical presentation is very consistent with COVID infection. She had another COVID swab done yesterday 08/18/19, and results are pending. Isolation continues. She is on empiric antibiotics for COVID and community-acquired pneumonia (6) Urinary tract infection Qualifiers: Urinary tract infection type: acute cystitis Hematuria presence: without hematuria Qualified Code(s): N30.00 - Acute cystitis without hematuria Assessment/Plan: She is on empiric antibiotics, started at admission. Awaiting urine culture results. Blood cultures have been negative to date. (7) EDITH (acute kidney injury) Assessment/Plan: Slowly improving creatinine every day. She is greater than 10 L positive and fluid balance. IV fluids were stopped because blood pressure is okay, she needed Lasix today. Follow BMP daily (8) Anemia Assessment/Plan: Suspect that this is edema dilutional because of her significant positive fluid balance. Follow CBC daily (9) Diarrhea Assessment/Plan: Recurtred today. Her bacterial cx were neg. No C diff was done since she had not been on antibx beforehand. Will order C.diff now. (10) Hypokalemia Assessment/Plan: Related to previous vomiting, diarrhea and inadequate peripheral iv replacement. Replace with ICU protocol. Follow BMP daily. (11) Syncope and collapse Assessment/Plan: This was the sx at home. She presented with low BP, and fever. Here, she started getting OOB to bedside commode today without trouble. It does not appear she will need PT, it has not been ordered up until now due to her confusion. (12) Hypothyroidism Assessment/Plan: Her home meds dose continues here. (13) Shingles Assessment/Plan: She had just started treatment for this 5 days before admission. Her home meds continue for this here. (14) Hypotension Assessment/Plan: Resolved after aggressive fluid resuscitation, she did not need pressors. (15) N&V (nausea and vomiting) Assessment/Plan: Resolved. She is tolerating food. (16) Dehydration Assessment/Plan: Resolved, with improved creat and BP. In fact she is probably volume overloaded given findings on CXR of vascular congestion. - Current Meds Current Meds: Current Medications Generic Name Dose Route Start Last Admin Trade Name Freq PRN Reason Stop Dose Admin Acetaminophen 650 mg 08/16/19 20:09 08/19/19 03:29 Tylenol PO 650 mg Q6HR PRN Administration Pain or Fever > 38C (100.4F) Dorzolamide HCl 1 drops 08/17/19 09:00 08/18/19 08:38 Trusopt 2% Ophth Drops EACHEYE 1 drops DAILY ERIC Administration Famotidine 20 mg 08/16/19 21:00 08/18/19 20:15 Pepcid IVP 20 mg BID ERIC Administration Haloperidol 1 mg 08/18/19 17:41 08/18/19 21:21 Haldol Inj IVP 1 mg Q8H PRN Administration Agitation Piperacillin Sod/Tazobactam 100 mls @ 25 mls/hr 08/17/19 07:00 08/19/19 03:33 Sod 3.375 gm/ Sodium Chloride IV 25 mls/hr Q8H ERIC Administration Azithromycin 500 mg/ Sodium 250 mls @ 250 mls/hr 08/17/19 12:00 08/18/19 13:55 Chloride IV 08/20/19 00:00 Infused Q24H ERIC Infusion Sodium Chloride 500 mls @ 0 mls/hr 08/17/19 22:00 08/18/19 04:47 Normal Saline 0.9% IV 20 mls/hr Q24H PRN Administration TKO RATE TKO Vancomycin HCl 1 gm/ 500 mls @ 250 mls/hr 08/19/19 01:00 08/19/19 03:29 Vancomycin HCl 500 mg/ Sodium IV Infused Chloride Q24H ERIC Infusion Latanoprost 1 drops 08/16/19 21:00 08/18/19 20:16 Xalatan Ophth Drops EACHEYE 1 drops QPM ERIC Administration Levothyroxine Sodium 75 mcg 08/17/19 07:00 08/19/19 06:28 Synthroid PO 75 mcg QDAC ERIC Administration Prochlorperazine Edisylate 10 mg 08/16/19 12:18 08/18/19 21:31 Compazine Inj IVP 10 mg Q6HR PRN Administration Nausea / Vomiting Sodium Chloride 10 ml 08/16/19 12:18 08/19/19 04:47 Normal Saline Flush 0.9% IVP 10 ml PRN PRN Administration NEEDED PER PROVIDER ORDERS Sodium Chloride 10 ml 08/16/19 17:00 04/27/20 00:59 Normal Saline Flush 0.9% IVP 10 ml 0100,0900,1700 ERIC Administration Sodium Chloride 20 ml 08/17/19 22:00 08/19/19 04:46 Normal Saline Flush 0.9% IVP 30 ml PRN PRN Administration After Blood Draw Timolol Maleate 1 drops 08/17/19 09:00 08/18/19 08:38 Timoptic 0.5% Ophth Drops EACHEYE 1 drops DAILY ERIC Administration Valacyclovir HCl 500 mg 08/16/19 13:00 08/19/19 00:58 Valtrex PO 500 mg Q12H ERIC Administration - Lab Result Fish Bone Diagrams: 08/19/19 04:30 08/19/19 04:30 - Additional Planning My Orders: My Active Orders 08/18/19 10:10 COVID-19 REFERENCE TEST Routine 08/18/19 17:41 Haloperidol Inj [Haldol Inj] 1 mg IVP Q8H PRN 08/19/19 01:00 Vancomycin Inj [Vancomycin] 1 gm Vancomycin Inj 500 mg Sodium Chloride 0.9% [Normal Saline 0.9%] 500 ml IV Q24H Subjective - Subjective Patient Reports: Other (On BIPAP. Has a headache from Lyrica dose decreased.) Objective Vital Signs: Vital Signs - 24 hr 08/18/19 08/18/19 08/18/19 09:00 10:00 11:00 Temperature Heart Rate [ 112 H 112 H 97 Monitoring electrodes] Respiratory 22 19 15 Rate Blood Pressure 119/99 H 119/71 126/84 H [Right Brachial artery] O2 Saturation 99 94 94 08/18/19 08/18/19 08/18/19 12:00 13:00 14:00 Temperature 36.8 C Heart Rate [ 92 93 108 H Monitoring electrodes] Respiratory 25 H 21 16 Rate Blood Pressure 114/78 109/72 112/89 H [Right Brachial artery] O2 Saturation 94 98 98 08/18/19 08/18/19 08/18/19 15:00 16:02 17:00 Temperature 36.8 C Heart Rate [ 101 H 114 H 113 H Monitoring electrodes] Respiratory 16 20 22 Rate Blood Pressure 118/85 H 135/96 H 144/68 H [Right Brachial artery] O2 Saturation 99 98 99 08/18/19 08/18/19 08/18/19 18:00 19:00 20:05 Temperature 38.1 C H 38.4 C H Heart Rate [ 112 H 110 H 106 H Monitoring electrodes] Respiratory 21 22 27 H Rate Blood Pressure 127/115 H 120/100 H 130/84 H [Right Brachial artery] O2 Saturation 96 100 96 08/18/19 08/18/19 08/18/19 21:35 22:00 23:00 Temperature 37.1 C Heart Rate [ 109 H 103 H 96 Monitoring electrodes] Respiratory 21 14 14 Rate Blood Pressure 144/80 H 104/79 102/74 [Right Brachial artery] O2 Saturation 96 97 95 08/19/19 08/19/19 08/19/19 00:00 01:00 02:00 Temperature 36.4 C L Heart Rate [ 89 82 112 H Monitoring electrodes] Respiratory 13 15 22 Rate Blood Pressure 94/57 L 97/75 111/99 H [Right Brachial artery] O2 Saturation 100 93 98 08/19/19 08/19/19 08/19/19 03:00 03:36 04:00 Temperature 38.4 C H Heart Rate [ 109 H 117 H 111 H Monitoring electrodes] Respiratory 22 22 20 Rate Blood Pressure 95/61 123/92 H [Right Brachial artery] O2 Saturation 98 100 08/19/19 08/19/19 08/19/19 04:58 05:00 06:00 Temperature 36.9 C Heart Rate [ 103 H 103 H 98 Monitoring electrodes] Respiratory 19 20 27 H Rate Blood Pressure 111/69 117/73 [Right Brachial artery] O2 Saturation 100 100 99 08/19/19 08/19/19 07:00 08:00 Temperature 37 C Heart Rate [ 104 H 94 Monitoring electrodes] Respiratory 14 20 Rate Blood Pressure 106/50 L 122/91 H [Right Brachial artery] O2 Saturation 100 98 Oxygen O2 Source Nasal cannula Oxygen Flow Rate 2 I&O (Last 24 Hrs): Intake and Output Totals x24h 08/17/19 08/18/19 08/19/19 23:59 23:59 23:59 Intake Total 9827.083 5199.167 1958.309 Output Total 854 1600 1100 Balance 8973.083 3599.167 858.309 General: Alert, Oriented x3 HEENT: Mucous membr. moist/pink, Other (Cheeks flushed. Is wearing BIPAP currently.) Neck: Supple Neuro: Alert, Non Focal, Other (He reports still having no memory of her time at home, the fall at home, the ER time, all of yesterday.) Cardiovascular: Regular rate Respiratory: No respiratory distress, Breath sounds nml Abdomen: Soft, Other (Obese with pannus) Extremities: No edema, Other (Arm ecchymosis at iv site) - Results Results: Laboratory Results WBC 10.6 x10^3/uL (4.8-10.8) 08/19/19 04:30 RBC 3.82 10^6/uL (4.20-5.40) L 08/19/19 04:30 Hgb 10.7 g/dL (12.0-16.0) L 08/19/19 04:30 Hct 33.7 % (37.0-47.0) L 08/19/19 04:30 MCV 88.2 fL (81.0-99.0) 08/19/19 04:30 MCH 28.0 pg (27.0-31.0) 08/19/19 04:30 MCHC 31.8 g/dL (32.0-36.0) L 08/19/19 04:30 RDW 13.1 % (12.0-15.0) 08/19/19 04:30 Plt Count 205 10^3/uL (130-450) 08/19/19 04:30 MPV 10.9 fL (7.9-10.8) H 08/19/19 04:30 Neut # (Auto) 8.4 10^3/uL (1.5-6.6) H 08/19/19 04:30 Lymph # (Auto) 0.8 10^3/uL (1.5-3.5) L 08/19/19 04:30 [place] # (Auto) 1.1 10^3/uL (0.0-1.0) H 08/19/19 04:30 Eos # (Auto) 0.1 10^3/uL (0.0-0.7) 08/19/19 04:30 Baso # (Auto) 0.1 10^3/uL (0.0-0.1) 08/19/19 04:30 Absolute Nucleated RBC 0.00 x10^3/uL 08/19/19 04:30 Total Counted 100 08/17/19 06:35 Band Neuts % (Manual) 3 % (0-10) 08/17/19 06:35 Abnorm Lymph % (Manual) 1 % 08/17/19 06:35 Nucleated RBC % 0.0 /100WBC 08/19/19 04:30 Neutrophils # (Manual) 8.8 10^3/uL (1.5-6.6) H 08/17/19 06:35 Lymphocytes # (Manual) 0.5 10^3/uL (1.5-3.5) L 08/17/19 06:35 Monocytes # (Manual) 0.6 10^3/uL (0.0-1.0) 08/17/19 06:35 Eosinophils # (Manual) 0.0 10^3/uL (0-0.7) 08/17/19 06:35 Basophils # (Manual) 0.0 10^3/uL (0-0.1) 08/17/19 06:35 Differential Comment MANUAL DIFFERENTIAL 08/17/19 06:35 Manual Slide Review Indicated 08/16/19 05:50 WBC Morphology NORMAL APPEARANCE (NORMAL) 08/17/19 06:35 Platelet Estimate NORMAL (130-450,000) (NORMAL) 08/17/19 06:35 Platelet Morphology NORMAL APPEARANCE (NORMAL) 08/17/19 06:35 RBC Morph Micro Appear NORMAL APPEARANCE (NORMAL) 08/17/19 06:35 PT 14.3 secs (9.9-12.6) H 08/17/19 06:35 INR 1.3 (0.8-1.2) H 08/17/19 06:35 Sodium 138 mmol/L (135-145) 08/19/19 04:30 Potassium 3.3 mmol/L (3.5-5.0) L 08/19/19 04:30 Chloride 115 mmol/L (101-111) H 08/19/19 04:30 Carbon Dioxide 16 mmol/L (21-32) L 08/19/19 04:30 Anion Gap 7.0 (6-13) 08/19/19 04:30 BUN 8 mg/dL (6-20) 08/19/19 04:30 Creatinine 1.1 mg/dL (0.4-1.0) H 08/19/19 04:30 Estimated GFR (MDRD) 50 (>89) L 08/19/19 04:30 Glucose 99 mg/dL (70-100) 08/19/19 04:30 Lactic Acid 1.3 mmol/L (0.5-2.2) 08/17/19 06:35 Calcium 7.1 mg/dL (8.5-10.3) L 08/19/19 04:30 Magnesium 1.8 mg/dL (1.7-2.8) 08/19/19 04:30 Total Bilirubin 0.6 mg/dL (0.2-1.0) 08/19/19 04:30 AST 23 IU/L (10-42) 08/19/19 04:30 ALT 34 IU/L (10-60) 08/19/19 04:30 Alkaline Phosphatase 68 IU/L (42-121) 08/19/19 04:30 Total Protein 5.5 g/dL (6.7-8.2) L 08/19/19 04:30 Albumin 2.1 g/dL (3.2-5.5) L 08/19/19 04:30 Globulin 3.4 g/dL (2.1-4.2) 08/19/19 04:30 Albumin/Globulin Ratio 0.6 (1.0-2.2) L 08/19/19 04:30 Lipase 28 U/L (22-51) 08/16/19 05:50 Urine Color YELLOW 08/16/19 09:42 Urine Clarity CLOUDY (CLEAR) 08/16/19 09:42 Urine pH 6.0 PH (5.0-7.5) 08/16/19 09:42 Ur Specific Hecker 1.025 (1.002-1.030) 08/16/19 09:42 Urine Protein 100 mg/dL (NEGATIVE) H 08/16/19 09:42 Urine Glucose (UA) NEGATIVE mg/dL (NEGATIVE) 08/16/19 09:42 Urine Ketones NEGATIVE mg/dL (NEGATIVE) 08/16/19 09:42 Urine Occult Blood MODERATE (NEGATIVE) H 08/16/19 09:42 Urine Nitrite NEGATIVE (NEGATIVE) 08/16/19 09:42 Urine Bilirubin NEGATIVE (NEGATIVE) 08/16/19 09:42 Urine Urobilinogen 0.2 (NORMAL) E.U./dL (NORMAL) 08/16/19 09:42 Ur Leukocyte Esterase LARGE (NEGATIVE) H 08/16/19 09:42 Urine RBC 11-25 /HPF (0-5) H 08/16/19 09:42 Urine WBC >25 /HPF (0-5) H 08/16/19 09:42 Ur Squamous Epith Cells MANY Squamous (<= Few) H 08/16/19 09:42 Urine Bacteria Moderate /HPF (None Seen) H 08/16/19 09:42 Ur Microscopic Review INDICATED 08/16/19 09:42 Urine Culture Comments NOT INDICATED 08/16/19 09:42 Nasal Screen MRSA (PCR) NEGATIVE (NEGATIVE) 08/17/19 14:35 Coronavirus (PCR) NEGATIVE 08/16/19 06:48 Influenza A (Rapid) Negative (Negative) 08/16/19 17:00 Influenza B (Rapid) Negative (Negative) 08/16/19 17:00 - Procedures Procedures: Procedures TOTAL KNEE REPLACEMENT (03/26/13)
[2019-08-19] MEDS: FAMOTIDINE 20 MG/2 ML SYRINGE IVP SCH ×2 (08:26→20:37)
[2019-08-19] MEDS: TIMOLOL 0.5% OPHTH DROPS EACHEYE SCH (08:27)
[2019-08-19] MEDS: DORZOLAMIDE 2% OPHTH DROPS EACHEYE SCH (08:27)
[2019-08-19 12:19] LABS: ABG BASE EXCESS -6.1 mmol/L (-2.0-3.0); ABG HCO3 17.8 mmol/L (22.0-26.0); ABG PCO2 30 mmHg (34-45); ABG PH 7.39 (7.35-7.45); ABG PO2 100 mmHg (80-100); ABG TCO2 18.7 MMOL/L (21.0-29.0)
[2019-08-19 12:20] LABS: ABG OXYGEN SATURATION 98 % (94-98); ALLEN TEST POSITIVE
[2019-08-19] MEDS: AZITHROMYCIN INJ 500 MG in SODIUM CHLORIDE 0.9% 250 ML IV SCH (12:40)
[2019-08-19] MEDS: ONDANSETRON 4 MG/2 ML VIAL IVP PRN (14:02)
[2019-08-19] MEDS: LATANOPROST 0.005% OPHTH DROPS EACHEYE SCH (20:37)
[2019-08-20] MEDS: valACYclovir 500 MG TABLET PO SCH ×2 (00:35→13:48)
[2019-08-20] MEDS: ACETAMINOPHEN 325 MG TABLET PO PRN ×2 (00:35→20:00)
[2019-08-20] MEDS: SODIUM CHLORIDE FLUSH 0.9% 10 ML SYRINGE IVP SCH ×3 (00:37→18:03)
[2019-08-20] MEDS: SODIUM CHLORIDE FLUSH 0.9% 10 ML SYRINGE IVP PRN ×5 (04:38→21:07)
[2019-08-20 05:05] LABS: BASOPHILS # (AUTO) 0.1 10^3/uL (0.0-0.1); BASOPHILS % (AUTO) 0.7 %; EOSINOPHILS # (AUTO) 0.2 10^3/uL (0.0-0.7); HGB - HEMOGLOBIN 9.1 g/dL (12.0-16.0); LYMPHOCYTES # (AUTO) 0.9 10^3/uL (1.5-3.5); LYMPHOCYTES % (AUTO) 9.9 %; MEAN CORPUSCULAR HEMOGLOBIN 27.6 pg (27.0-31.0); MEAN CORPUSCULAR HGB CONC 31.8 g/dL (32.0-36.0); MEAN CORPUSCULAR VOLUME 86.7 fL (81.0-99.0); MEAN PLATELET VOLUME 10.6 fL (7.9-10.8); MONOCYTES # (AUTO) 1.1 10^3/uL (0.0-1.0); MONOCYTES % (AUTO) 12.8 %; NEUTROPHILS # (AUTO) 6.4 10^3/uL (1.5-6.6); NEUTROPHILS % (AUTO) 72.6 %; PLT - PLATELET COUNT 221 10^3/uL (130-450); RED CELL DISTRIBUTION WIDTH 12.9 % (12.0-15.0); WHITE BLOOD COUNT 8.8 x10^3/uL (4.8-10.8)
[2019-08-20 05:39] LABS: CALCIUM 7.1 mg/dL (8.5-10.3); CREATININE 1.4 mg/dL (0.4-1.0)
[2019-08-20 06:24] LABS: ALBUMIN 1.9 g/dL (3.2-5.5); MAGNESIUM 1.5 mg/dL (1.7-2.8); PHOSPHORUS 2.2 mg/dL (2.5-4.6)
[2019-08-20] MEDS: LEVOTHYROXINE 75 MCG TABLET PO SCH (06:33)
[2019-08-20] MEDS: PIPERACILLIN/TAZOBACTAM 3.375 GM in SODIUM CHLORIDE 0.9% MINIBAG 100 ML IV SCH ×3 (06:34→21:06)
[2019-08-20] MEDS: MAGNESIUM OXIDE 400 MG TABLET PO SCH ×3 (06:38→14:03)
[2019-08-20] MEDS: NEUTRA-PHOS 250 MG TABLET PO SCH ×2 (06:38→08:21)
--- NOTE | 2019-08-20 07:37 | PROVIDER PROGRESS NOTE ---
Subjective - Prog Note Date Prog Note Date: 08/20/19 - Subjective Subjective: This morning she is off of BiPAP and reports no chest pain or dyspnea. She is complaining of acute left-sided lower quadrant abdominal pain that began after a bowel movement. The pain is quite severe and she is tearful. She reports no flank pain. Current Medications - Current Medications Current Medications: Active Medications Acetaminophen (Tylenol) 650 mg PO Q6HR PRN PRN Reason: Pain or Fever > 38C (100.4F) Last Admin: 08/20/19 00:35 Dose: 650 mg Dorzolamide HCl (Trusopt 2% Ophth Drops) 1 drops EACHEYE DAILY ERIC Last Admin: 08/20/19 08:22 Dose: 1 drops Famotidine (Pepcid) 20 mg IVP BID ERIC Last Admin: 08/20/19 08:22 Dose: 20 mg Haloperidol (Haldol Inj) 1 mg IVP Q8H PRN PRN Reason: Agitation Last Admin: 08/18/19 21:21 Dose: 1 mg Piperacillin Sod/Tazobactam (Sod 3.375 gm/ Sodium Chloride) 100 mls @ 25 mls/hr IV Q8H ERIC Last Admin: 08/20/19 06:34 Dose: 25 mls/hr Sodium Chloride (Normal Saline 0.9%) 500 mls @ 0 mls/hr IV Q24H PRN PRN Reason: TKO RATE Last Admin: 08/18/19 04:47 Dose: 20 mls/hr Latanoprost (Xalatan Ophth Drops) 1 drops EACHEYE QPM [facility] Last Admin: 08/19/19 20:37 Dose: 1 drops Levothyroxine Sodium (Synthroid) 75 mcg PO QDAC ERIC Last Admin: 08/20/19 06:33 Dose: 75 mcg Magnesium Oxide (Mag Ox) 400 mg PO Q6H [facility]; Protocol Stop: 08/20/19 13:01 Last Admin: 08/20/19 06:38 Dose: 400 mg Ondansetron HCl (Zofran Inj) 4 mg IVP Q6HR PRN PRN Reason: Nausea / Vomiting Last Admin: 08/19/19 14:02 Dose: 4 mg Pregabalin (Lyrica) 75 mg PO BID [facility] Prochlorperazine Edisylate (Compazine Inj) 10 mg IVP Q6HR PRN PRN Reason: Nausea / Vomiting Last Admin: 08/18/19 21:31 Dose: 10 mg Sodium Chloride (Normal Saline Flush 0.9%) 10 ml IVP PRN PRN PRN Reason: NEEDED PER PROVIDER ORDERS Last Admin: 08/20/19 04:38 Dose: 10 ml Sodium Chloride (Normal Saline Flush 0.9%) 10 ml IVP 0100,0900,1700 [facility] Last Admin: 08/20/19 08:22 Dose: 10 ml Sodium Chloride (Normal Saline Flush 0.9%) 20 ml IVP PRN PRN PRN Reason: After Blood Draw Last Admin: 08/20/19 04:38 Dose: 20 ml Timolol Maleate (Timoptic 0.5% Ophth Drops) 1 drops EACHEYE DAILY [facility] Last Admin: 08/20/19 08:23 Dose: 1 drops Valacyclovir HCl (Valtrex) 500 mg PO Q12H [facility] Last Admin: 08/20/19 00:35 Dose: 500 mg Cyclobenzaprine [Flexeril] 10 mg PO TID PRN 03/26/13 Levothyroxine [Synthroid] 75 mcg PO QDAC 03/26/13 Losartan [Cozaar] 100 mg PO DAILY 03/26/13 Pregabalin [Lyrica] 150 mg PO TID 03/26/13 Zolpidem [Ambien] 10 mg PO QPM 03/26/13 Valacyclovir HCl [Valacyclovir] 500 mg PO Q12H 08/16/19 hydroCHLOROthiazide [Hydrochlorothiazide] 25 mg PO DAILY 08/16/19 Objective - Vital Signs/Intake & Output Reviewed Vital Signs: Yes Vital Signs: Vital Signs Temp Pulse Resp BP Pulse Ox 08/20/19 07:00 81 16 125/68 96 08/20/19 06:31 86 15 124/63 92 08/20/19 05:00 95 23 103/60 94 08/20/19 04:37 37.0 C 91 20 94 08/20/19 04:00 84 14 111/64 96 Intake & Output: Intake & Output 08/17/19 08/18/19 08/19/19 08/20/19 23:59 23:59 23:59 23:59 Intake Total 9827.083 5199.167 3308.309 850 Output Total 854 1600 4520 580 Balance 8973.083 3599.167 1211.691 270 - Objective General Appearance: positive: Alert, Moderate distress Eyes Bilateral: positive: Normal inspection ENT: positive: ENT inspection nml Neck: positive: Nml inspection Respiratory: positive: No respiratory distress. negative: Wheezes, Rales Cardiovascular: positive: Regular rate & rhythm, No murmur. negative: Tachycar hollie, Bradycardia, Systolic murmur Abdomen: positive: No distention, Tenderness (Left lower quadrant.), Guarding. negative: Non-tender, Rebound Skin: positive: Warm, Dry Extremities: positive: Full ROM, No pedal edema Neurologic/Psychiatric: positive: Oriented x3. negative: Disoriented to person, Disoriented to place, Disoriented to time - Lab Results Fish Bones: 08/20/19 04:35 08/20/19 04:35 Other Labs: Lab Results x24hrs 08/20/19 08/20/19 08/20/19 Range/Units 04:35 04:35 04:35 WBC 8.8 (4.8-10.8) x10^3/uL RBC 3.30 L (4.20-5.40) 10^6/uL Hgb 9.1 L (12.0-16.0) g/dL Hct 28.6 L (37.0-47.0) % MCV 86.7 (81.0-99.0) fL MCH 27.6 (27.0-31.0) pg MCHC 31.8 L (32.0-36.0) g/dL RDW 12.9 (12.0-15.0) % Plt Count 221 (130-450) 10^3/uL MPV 10.6 (7.9-10.8) fL Neut # (Auto) 6.4 (1.5-6.6) 10^3/uL Lymph # (Auto) 0.9 L (1.5-3.5) 10^3/uL [place] # (Auto) 1.1 H (0.0-1.0) 10^3/uL Eos # (Auto) 0.2 (0.0-0.7) 10^3/uL Baso # (Auto) 0.1 (0.0-0.1) 10^3/uL Absolute Nucleated RBC 0.00 x10^3/uL Nucleated RBC % 0.0 /100WBC D-Dimer (200.0-255.0) ng/mL Bld Gas Analysis Time Sample Site ABG pH (7.35-7.45) ABG pCO2 (34-45) mmHg ABG pO2 (80-100) mmHg ABG HCO3 (22.0-26.0) mmol/L ABG Total CO2 (21.0-29.0) MMOL/L ABG O2 Saturation (94-98) % ABG Base Excess (-2.0-3.0) mmol/L Delon Test O2 Delivery Device FiO2 Sodium 138 (135-145) mmol/L Potassium 3.0 L (3.5-5.0) mmol/L Chloride 110 (101-111) mmol/L Carbon Dioxide 21 (21-32) mmol/L Anion Gap 7.0 (6-13) BUN 10 (6-20) mg/dL Creatinine 1.4 H (0.4-1.0) mg/dL Estimated GFR (MDRD) 38 L (>89) Glucose 91 (70-100) mg/dL Calcium 7.1 L (8.5-10.3) mg/dL Phosphorus 2.2 L (2.5-4.6) mg/dL Magnesium 1.5 L (1.7-2.8) mg/dL Troponin I High Sens (2.3-14.8) ng/L B-Natriuretic Peptide (5-100) pg/mL Albumin 1.9 L (3.2-5.5) g/dL TSH (0.34-5.60) uIU/mL Stl C. diff Tox B Gene (NEGATIVE) Coronavirus (PCR) 08/19/19 08/19/19 08/19/19 Range/Units 15:00 13:21 12:19 WBC (4.8-10.8) x10^3/uL RBC (4.20-5.40) 10^6/uL Hgb (12.0-16.0) g/dL Hct (37.0-47.0) % MCV (81.0-99.0) fL MCH (27.0-31.0) pg MCHC (32.0-36.0) g/dL RDW (12.0-15.0) % Plt Count (130-450) 10^3/uL MPV (7.9-10.8) fL Neut # (Auto) (1.5-6.6) 10^3/uL Lymph # (Auto) (1.5-3.5) 10^3/uL [place] # (Auto) (0.0-1.0) 10^3/uL Eos # (Auto) (0.0-0.7) 10^3/uL Baso # (Auto) (0.0-0.1) 10^3/uL Absolute Nucleated RBC x10^3/uL Nucleated RBC % /100WBC D-Dimer > 1050.0 H (200.0-255.0) ng/mL Bld Gas Analysis Time Sample Site ABG pH (7.35-7.45) ABG pCO2 (34-45) mmHg ABG pO2 (80-100) mmHg ABG HCO3 (22.0-26.0) mmol/L ABG Total CO2 (21.0-29.0) MMOL/L ABG O2 Saturation (94-98) % ABG Base Excess (-2.0-3.0) mmol/L Delon Test O2 Delivery Device FiO2 Sodium (135-145) mmol/L Potassium (3.5-5.0) mmol/L Chloride (101-111) mmol/L Carbon Dioxide (21-32) mmol/L Anion Gap (6-13) BUN (6-20) mg/dL Creatinine (0.4-1.0) mg/dL Estimated GFR (MDRD) (>89) Glucose (70-100) mg/dL Calcium (8.5-10.3) mg/dL Phosphorus (2.5-4.6) mg/dL Magnesium (1.7-2.8) mg/dL Troponin I High Sens (2.3-14.8) ng/L B-Natriuretic Peptide 259 H (5-100) pg/mL Albumin (3.2-5.5) g/dL TSH (0.34-5.60) uIU/mL Stl C. diff Tox B Gene NEGATIVE (NEGATIVE) Coronavirus (PCR) 08/19/19 08/19/19 08/19/19 Range/Units 12:19 12:10 04:40 WBC (4.8-10.8) x10^3/uL RBC (4.20-5.40) 10^6/uL Hgb (12.0-16.0) g/dL Hct (37.0-47.0) % MCV (81.0-99.0) fL MCH (27.0-31.0) pg MCHC (32.0-36.0) g/dL RDW (12.0-15.0) % Plt Count (130-450) 10^3/uL MPV (7.9-10.8) fL Neut # (Auto) (1.5-6.6) 10^3/uL Lymph # (Auto) (1.5-3.5) 10^3/uL [place] # (Auto) (0.0-1.0) 10^3/uL Eos # (Auto) (0.0-0.7) 10^3/uL Baso # (Auto) (0.0-0.1) 10^3/uL Absolute Nucleated RBC x10^3/uL Nucleated RBC % /100WBC D-Dimer (200.0-255.0) ng/mL Bld Gas Analysis Time 1210 Sample Site RIGHT RADIAL ABG pH 7.39 (7.35-7.45) ABG pCO2 30 L (34-45) mmHg ABG pO2 100 (80-100) mmHg ABG HCO3 17.8 L (22.0-26.0) mmol/L ABG Total CO2 18.7 L (21.0-29.0) MMOL/L ABG O2 Saturation 98 (94-98) % ABG Base Excess -6.1 L (-2.0-3.0) mmol/L Delon Test POSITIVE O2 Delivery Device NASAL CANNULA FiO2 2.00 Sodium (135-145) mmol/L Potassium (3.5-5.0) mmol/L Chloride (101-111) mmol/L Carbon Dioxide (21-32) mmol/L Anion Gap (6-13) BUN (6-20) mg/dL Creatinine (0.4-1.0) mg/dL Estimated GFR (MDRD) (>89) Glucose (70-100) mg/dL Calcium (8.5-10.3) mg/dL Phosphorus (2.5-4.6) mg/dL Magnesium (1.7-2.8) mg/dL Troponin I High Sens 19.8 H* (2.3-14.8) ng/L B-Natriuretic Peptide (5-100) pg/mL Albumin (3.2-5.5) g/dL TSH 1.39 (0.34-5.60) uIU/mL Stl C. diff Tox B Gene (NEGATIVE) Coronavirus (PCR) 08/18/19 Range/Units 10:10 WBC (4.8-10.8) x10^3/uL RBC (4.20-5.40) 10^6/uL Hgb (12.0-16.0) g/dL Hct (37.0-47.0) % MCV (81.0-99.0) fL MCH (27.0-31.0) pg MCHC (32.0-36.0) g/dL RDW (12.0-15.0) % Plt Count (130-450) 10^3/uL MPV (7.9-10.8) fL Neut # (Auto) (1.5-6.6) 10^3/uL Lymph # (Auto) (1.5-3.5) 10^3/uL [place] # (Auto) (0.0-1.0) 10^3/uL Eos # (Auto) (0.0-0.7) 10^3/uL Baso # (Auto) (0.0-0.1) 10^3/uL Absolute Nucleated RBC x10^3/uL Nucleated RBC % /100WBC D-Dimer (200.0-255.0) ng/mL Bld Gas Analysis Time Sample Site ABG pH (7.35-7.45) ABG pCO2 (34-45) mmHg ABG pO2 (80-100) mmHg ABG HCO3 (22.0-26.0) mmol/L ABG Total CO2 (21.0-29.0) MMOL/L ABG O2 Saturation (94-98) % ABG Base Excess (-2.0-3.0) mmol/L Delon Test O2 Delivery Device FiO2 Sodium (135-145) mmol/L Potassium (3.5-5.0) mmol/L Chloride (101-111) mmol/L Carbon Dioxide (21-32) mmol/L Anion Gap (6-13) BUN (6-20) mg/dL Creatinine (0.4-1.0) mg/dL Estimated GFR (MDRD) (>89) Glucose (70-100) mg/dL Calcium (8.5-10.3) mg/dL Phosphorus (2.5-4.6) mg/dL Magnesium (1.7-2.8) mg/dL Troponin I High Sens (2.3-14.8) ng/L B-Natriuretic Peptide (5-100) pg/mL Albumin (3.2-5.5) g/dL TSH (0.34-5.60) uIU/mL Stl C. diff Tox B Gene (NEGATIVE) Coronavirus (PCR) NEGATIVE Assessment/Plan - Problem List (1) Sepsis Impression: This is presumed to be secondary to a urinary tract infection. There was initially concern for ca virus infection but she has been tested twice and this is negative. Her chest x-ray appears more consistent with pulmonary edema as she had no infiltrates on admission and she is net positive over 10 L. The latest chest x-ray is more suggestive of vascular congestion rather than interstitial pneumonia. She did receive azithromycin IV for [address] We will keep her on Zosyn IV for the urinary tract infection. We will look to de-escalate to oral antibiotics as long as she remains afebrile. (2) Urinary tract infection Impression: This is believed to be a source of her sepsis. Her initial urinalysis was not a clean sample and so it was not sent for culture. Her blood cultures have also been negative and so we do not have an organism. I will repeat a urinalysis today as if there is still suggestion of infection, suspect that this was likely a UTI that caused her sepsis. We will continue on Zosyn IV. If she continues to clinically improve with no more fevers and an improving white count, will transition her to oral antibiotics. Qualifiers: Urinary tract infection type: acute cystitis Hematuria presence: without hematuria Qualified Code(s): N30.00 - Acute cystitis without hematuria (3) Abdominal pain Impression: This pain was acute in nature and occurring left lower quadrant after a bowel movement. She is quite tender on exam but without peritoneal signs. She reports a history of left renal mass in the past. Given the severity of her abdominal pain, we will obtain a stat CT the abdomen pelvis without contrast given her acute kidney injury. She has allergy to morphine so we will give her for pain. No NSAIDs due to her acute kidney injury. We will reassess in the afternoon and follow-up on the CT of the abdomen and pelvis. Qualifiers: Abdominal location: left lower quadrant Qualified Code(s): R10.32 - Left lower quadrant pain (4) EDITH (acute kidney injury) Impression: Suspect her acute kidney injury was initially likely secondary to ATN due to her hypotension. Her creatinine was 1.8 on admission and had improved to 1.1 but today has increased to 1.4. This increase may be secondary to her receiving IV Lasix. There is no evidence of obstruction on imaging and she has a Cisneros catheter in place. Prior labs from 7 years ago showed a creatinine of 0.7 so this is presumed to be acute kidney injury. At this time, we will continue to diurese her gently with IV Lasix given she has came off of BiPAP and imaging still suggests pulmonary vascular congestion. If her creatinine rises again tomorrow, then we will discontinue the diuresis. Continue to monitor her renal function. Hold her home losartan. Avoid nephrotoxic medications. (5) Pulmonary vascular congestion Impression: There was initial concern for interstitial pneumonia and she was treated with azithromycin IV empirically as this could have been the coronavirus. She hs tested negative twice now. Repeat imaging is more suggestive of pulmonary vascular congestion as she had no infiltrates present on admission and received multiple liters of IV fluids. She also appears to have bilateral pleural effusions and appears slightly hypervolemic on exam. She is now off of BiPAP and is saturating well on room air. We will continue to diurese her with IV Lasix and obtain an echocardiogram (6) Altered mental status Impression: This has resolved. Suspect this is secondary to her infection as well as the use of her Lyrica and Ambien given her acute kidney injury. We will continue to hold her Ambien but will resume her Lyrica at a lower dose today. Continue to monitor her mental status. Qualifiers: Altered mental status type: transient alteration of awareness Qualified Code(s): R40.4 - Transient alteration of awareness (7) Anemia Impression: Hemoglobin is 15 on admission and has been slowly decreasing and today it is 9.1. Suspect on admission she was dehydrated and hemoconcentrated. Her baseline appears to be around 11. Given today was an acute drop, we will recheck a CBC. If this was a true drop, will obtain iron studies and check her stool for occult blood. (8) Hypothyroidism Impression: Stable. Continue her home Synthroid. (9) Shingles Impression: Discontinue her valacyclovir as she has completed over 7 days of therapy.
[2019-08-20] MEDS ORDERED: POTASSIUM CHLORIDE 20 MEQ TABLET PO ONE (08:00)
[2019-08-20] MEDS: DORZOLAMIDE 2% OPHTH DROPS EACHEYE SCH (08:22)
[2019-08-20] MEDS: FAMOTIDINE 20 MG/2 ML SYRINGE IVP SCH ×2 (08:22→20:00)
[2019-08-20] MEDS: TIMOLOL 0.5% OPHTH DROPS EACHEYE SCH (08:23)
[2019-08-20 10:05] LABS: BILIRUBIN,URINE NEGATIVE (NEGATIVE); GLUCOSE, URINE (UA) NEGATIVE (NEGATIVE); KETONES,URINE (UA) TRACE mg/dL (NEGATIVE); LEUKOCYTE ESTERASE, URINE TRACE (NEGATIVE); NITRITE,URINE NEGATIVE (NEGATIVE); OCCULT BLOOD,URINE TRACE-INTA (NEGATIVE); PROTEIN,URINE TRACE mg/dL (NEGATIVE); UROBILINOGEN,URINE 0.2 (NORMAL) E.U./dL (NORMAL)
[2019-08-20 10:07] LABS: CLARITY,URINE CLEAR (CLEAR)
[2019-08-20 10:20] LABS: BACTERIA,URINE Rare /HPF (None Seen); RBC,URINE 0-5 /HPF (0-5); SQUAMOUS EPITHELIAL CELL,UR RARE Squamous (<= Few); WBC CLUMPS,URINE PRESENT
[2019-08-20] MEDS: ONDANSETRON 4 MG/2 ML VIAL IVP PRN ×2 (10:32→19:02)
[2019-08-20] MEDS: PROCHLORPERAZINE 10 MG/2 ML VIAL IVP PRN ×2 (11:17→20:02)
--- NOTE | 2019-08-20 11:47 | CT Report ---
Reason: Abdominal pain. Sepsis. Procedure Date: 08/20/2019 Accession Number: [id number] / [id number] Procedure: CT - Abdomen/Pelvis WO CPT Code: Final Report FULL RESULT: EXAM: CT ABDOMEN AND PELVIS (CT KUB) EXAM DATE: 08/20/2019 10:29 AM. CLINICAL HISTORY: Abdominal pain. Sepsis. Known left renal mass. COMPARISONS: ABD/PEL 12/03/2003 2:24 PM. TECHNIQUE: Routine axial helical CT imaging was performed through the abdomen and pelvis without IV contrast. Reconstructions: Coronal and sagittal. In accordance with CT protocol optimization, one or more of the following dose reduction techniques were utilized for this exam: automated exposure control, adjustment of mA and/or KV based on patient size, or use of iterative reconstructive technique. FINDINGS: Lung Bases: Moderate hiatal hernia. Small to moderate bilateral pleural effusions. Right Kidney/Ureter: No stones, hydronephrosis, or hydroureter. No perinephric fat stranding. Left Kidney/Ureter: 3.2 x 2.6 x 3.5 cm complex partially exophytic lateral left mid renal lesion. Mild left perinephric edema. Other Solid Organs: Noncontrast images of the solid organs are grossly unremarkable. Gallbladder/Bile Ducts: Prior cholecystectomy. Peritoneal Cavity: Diverticulosis. Trace free intraperitoneal fluid. Pelvic Organs: Bladder is collapsed by a Cisneros catheter. Prior hysterectomy. No adnexal abnormal abnormality demonstrated. Vasculature: Unremarkable on noncontrast imaging. Other: Right sacroiliac surgical bar. 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 IMPRESSION: 1. A 3.5 cm complex partially exophytic lateral left mid renal lesion compatible with known renal mass. 2. Diverticulosis. No diverticulitis. 3. Bilateral pleural effusions. 4. Moderate hiatal hernia. [facility] The call report notification system was initiated by Dr. Dwayne Velásquez at 11:39 AM on 08/20/2019. The above call report findings were discussed with Carlos Phillips by Dr. Dwayne Velásquez at 11:44 AM on 08/20/2019.
[2019-08-20] MEDS: SODIUM CHLORIDE 0.9% 500 ML IV PRN (12:42)
[2019-08-20 16:26] LABS: CALCIUM 7.1 mg/dL (8.5-10.3); CREATININE 1.3 mg/dL (0.4-1.0); MAGNESIUM 1.7 mg/dL (1.7-2.8); PHOSPHORUS 2.5 mg/dL (2.5-4.6)
[2019-08-20] MEDS: HALOPERIDOL 5 MG/ML VIAL IVP PRN (20:01)
[2019-08-20] MEDS: LATANOPROST 0.005% OPHTH DROPS EACHEYE SCH (20:01)
[2019-08-20] MEDS: PREGABALIN 25 MG CAPSULE PO SCH (21:02)
[2019-08-21] MEDS ORDERED: BENZOCAINE/MENTHOL LOZENGE MM PRN
[2019-08-21] MEDS ORDERED: PHENOL THROAT SPRAY 177 ML MM PRN
[2019-08-21] MEDS: SODIUM CHLORIDE FLUSH 0.9% 10 ML SYRINGE IVP SCH ×3 (00:18→16:20)
[2019-08-21] MEDS: ONDANSETRON 4 MG/2 ML VIAL IVP PRN ×2 (04:11→14:41)
[2019-08-21] MEDS: SODIUM CHLORIDE FLUSH 0.9% 10 ML SYRINGE IVP PRN ×2 (04:11→20:53)
[2019-08-21] MEDS: PROCHLORPERAZINE 10 MG/2 ML VIAL IVP PRN ×2 (05:18→16:21)
[2019-08-21 05:45] LABS: BASOPHILS % (AUTO) 0.5 %; EOSINOPHILS % (AUTO) 1.6 %; HGB - HEMOGLOBIN 9.7 g/dL (12.0-16.0); LYMPHOCYTES % (AUTO) 10.5 %; MEAN CORPUSCULAR HEMOGLOBIN 28.1 pg (27.0-31.0); MEAN CORPUSCULAR HGB CONC 32.1 g/dL (32.0-36.0); MEAN CORPUSCULAR VOLUME 87.5 fL (81.0-99.0); MEAN PLATELET VOLUME 9.9 fL (7.9-10.8); NEUTROPHILS % (AUTO) 72.1 %; PLT - PLATELET COUNT 322 10^3/uL (130-450); RED BLOOD COUNT 3.45 10^6/uL (4.20-5.40); RED CELL DISTRIBUTION WIDTH 12.8 % (12.0-15.0); WHITE BLOOD COUNT 9.1 x10^3/uL (4.8-10.8)
[2019-08-21 05:52] LABS: ABNORMAL LYMPHS % (MANUAL) 0 %
[2019-08-21 05:55] LABS: CALCIUM 7.5 mg/dL (8.5-10.3); CREATININE 1.2 mg/dL (0.4-1.0); MAGNESIUM 1.7 mg/dL (1.7-2.8); PHOSPHORUS 2.6 mg/dL (2.5-4.6)
[2019-08-21] MEDS: PIPERACILLIN/TAZOBACTAM 3.375 GM in SODIUM CHLORIDE 0.9% MINIBAG 100 ML IV SCH (05:56)
[2019-08-21 06:16] LABS: BAND NEUTROPHILS % (MANUAL) 2 %; DIFFERENTIAL COMMENT MANUAL DIFFERENTIAL; LYMPHOCYTES # (MANUAL) 1.4 10^3/uL (1.5-3.5); LYMPHOCYTES % (MANUAL) 15 %; METAMYELOCYTES % (MANUAL) 2 %; MONOCYTES # (MANUAL) 0.7 10^3/uL (0.0-1.0); MYELOCYTES % (MANUAL) 1 %; PLATELET ESTIMATE, MANUAL NORMAL (130-450,000) (NORMAL); RBC MORPHOLOGY (MULTIPLE) NORMAL APPEARANCE (NORMAL)
[2019-08-21] MEDS ORDERED: POTASSIUM CHLORIDE 20 MEQ TABLET PO SCH (07:16)
[2019-08-21] MEDS: FAMOTIDINE 20 MG/2 ML SYRINGE IVP SCH ×2 (08:37→20:52)
[2019-08-21] MEDS: PREGABALIN 25 MG CAPSULE PO SCH ×2 (08:37→20:53)
[2019-08-21] MEDS: LEVOTHYROXINE 75 MCG TABLET PO SCH (08:37)
[2019-08-21] MEDS: TIMOLOL 0.5% OPHTH DROPS EACHEYE SCH (08:38)
[2019-08-21] MEDS: DORZOLAMIDE 2% OPHTH DROPS EACHEYE SCH (08:38)
[2019-08-21] MEDS: POTASSIUM CHLOR 10 MEQ/100 ML 10 MEQ/100 ML BAG IV SCH ×4 (08:39→13:27)
[2019-08-21] MEDS: valACYclovir 500 MG TABLET PO SCH ×2 (10:36→20:54)
--- NOTE | 2019-08-21 11:22 | PROVIDER PROGRESS NOTE ---
Subjective - Prog Note Date Prog Note Date: 08/21/19 - Subjective Subjective: Reports feeling better today. Denies any abdominal pain. Still feels nauseous at times but no vomiting. She tells me she was not taking her valacyclovir prior to admission. She would like to restart it now. Current Medications - Current Medications Current Medications: Active Medications Acetaminophen (Tylenol) 650 mg PO Q6HR PRN PRN Reason: Pain or Fever > 38C (100.4F) Last Admin: 08/20/19 20:00 Dose: 650 mg Dorzolamide HCl (Trusopt 2% Ophth Drops) 1 drops EACHEYE DAILY [facility] Last Admin: 08/21/19 08:38 Dose: Not Given Famotidine (Pepcid) 20 mg IVP BID [facility] Last Admin: 08/21/19 08:37 Dose: 20 mg Haloperidol (Haldol Inj) 1 mg IVP Q8H PRN PRN Reason: Agitation Last Admin: 08/20/19 20:01 Dose: 1 mg Heparin Sodium (Beef Lung) () 30 - 50 unit IVP PRN PRN PRN Reason: Central Line Protocol (<24 hr) Last Admin: 08/20/19 18:57 Dose: 50 unit Piperacillin Sod/Tazobactam (Sod 3.375 gm/ Sodium Chloride) 100 mls @ 25 mls/hr IV Q8H [facility] Last Admin: 08/21/19 05:56 Dose: 25 mls/hr Potassium Chloride (Potassium Chloride) 10 meq in 100 mls @ 100 mls/hr IV Q1H [facility] Stop: 08/21/19 11:59 Last Admin: 08/21/19 10:27 Dose: 100 mls/hr Latanoprost (Xalatan Ophth Drops) 1 drops EACHEYE QPM [facility] Last Admin: 08/20/19 20:01 Dose: 1 drops Levothyroxine Sodium (Synthroid) 75 mcg PO QDAC [facility] Last Admin: 08/21/19 08:37 Dose: 75 mcg Ondansetron HCl (Zofran Inj) 4 mg IVP Q6HR PRN PRN Reason: Nausea / Vomiting Last Admin: 08/21/19 04:11 Dose: 4 mg Phenol/Menthol (Chloraseptic) 2 sprays MM Q2HR PRN PRN Reason: Throat Pain Pregabalin (Lyrica) 75 mg PO BID [facility] Last Admin: 08/21/19 08:37 Dose: 75 mg Prochlorperazine Edisylate (Compazine Inj) 10 mg IVP Q6HR PRN PRN Reason: Nausea / Vomiting Last Admin: 08/21/19 05:18 Dose: 10 mg Sodium Chloride (Normal Saline Flush 0.9%) 10 ml IVP PRN PRN PRN Reason: NEEDED PER PROVIDER ORDERS Last Admin: 08/21/19 04:11 Dose: 10 ml Sodium Chloride (Normal Saline Flush 0.9%) 10 ml IVP 0100,0900,1700 [facility] Last Admin: 08/21/19 08:38 Dose: 10 ml Sodium Chloride (Normal Saline Flush 0.9%) 20 ml IVP PRN PRN PRN Reason: After Blood Draw Last Admin: 08/20/19 20:02 Dose: 20 ml Throat Lozenges (Cepacol) 1 lozenge MM Q2HR PRN PRN Reason: Throat pain Last Admin: 08/21/19 00:18 Dose: 1 lozenge Timolol Maleate (Timoptic 0.5% Ophth Drops) 1 drops EACHEYE DAILY [facility] Last Admin: 08/21/19 08:38 Dose: Not Given Valacyclovir HCl (Valtrex) 500 mg PO BID [facility] Last Admin: 08/21/19 10:36 Dose: 500 mg Cyclobenzaprine [Flexeril] 10 mg PO TID PRN 03/26/13 Levothyroxine [Synthroid] 75 mcg PO QDAC 03/26/13 Losartan [Cozaar] 100 mg PO DAILY 03/26/13 Pregabalin [Lyrica] 150 mg PO TID 03/26/13 Zolpidem [Ambien] 10 mg PO QPM 03/26/13 Valacyclovir HCl [Valacyclovir] 500 mg PO Q12H 08/16/19 hydroCHLOROthiazide [Hydrochlorothiazide] 25 mg PO DAILY 08/16/19 Objective - Vital Signs/Intake & Output Reviewed Vital Signs: Yes Vital Signs: Vital Signs x48h Temp Pulse Resp Pulse Ox 08/21/19 08:00 37.0 C 92 18 97 08/21/19 04:14 97 Intake & Output: Intake & Output 08/18/19 08/19/19 08/20/19 08/21/19 23:59 23:59 23:59 23:59 Intake Total 5199.167 3308.309 1944.583 860 Output Total 1661 4532 2480 1025 Balance 3599.167 -1211.691 -535.417 -165 - Objective General Appearance: positive: No acute distress, Alert Eyes Bilateral: positive: Normal inspection, Conjunctivae nml ENT: positive: ENT inspection nml Neck: positive: Nml inspection Respiratory: positive: No respiratory distress. negative: Wheezes, Rales Cardiovascular: positive: Regular rate & rhythm, No murmur. negative: Tachycardia Abdomen: positive: Non-tender, No distention. negative: Tenderness, Guarding Skin: positive: Warm, Dry, Other (No vesicles noted over the anterior abdomen. There are closed vesicles over the left side of her back in the lumbar region.) Extremities: positive: Full ROM, Pedal edema (Trace pitting edema in bilateral lower extremities.) Neurologic/Psychiatric: positive: Oriented x3. negative: Disoriented to person, Disoriented to place, Disoriented to time, Slurred/abnml speech - Lab Results Fish Bones: 08/21/19 05:10 08/21/19 05:10 Other Labs: Lab Results x24hrs 08/21/19 08/21/19 08/20/19 Range/Units 05:10 05:10 15:35 WBC 9.1 (4.8-10.8) x10^3/uL RBC 3.45 L (4.20-5.40) 10^6/uL Hgb 9.7 L (12.0-16.0) g/dL Hct 30.2 L (37.0-47.0) % MCV 87.5 (81.0-99.0) fL MCH 28.1 (27.0-31.0) pg MCHC 32.1 (32.0-36.0) g/dL RDW 12.8 (12.0-15.0) % Plt Count 322 (130-450) 10^3/uL MPV 9.9 (7.9-10.8) fL Neut # (Auto) Not Reportable Lymph # (Auto) Not Reportable [place] # (Auto) Not Reportable Eos # (Auto) Not Reportable Baso # (Auto) Not Reportable Absolute Nucleated RBC Not Reportable Total Counted 100 Band Neuts % (Manual) 2 (0 - 10) % Abnorm Lymph % (Manual) 0 % Metamyelocytes % 2 H ( - 0) % Myelocytes % 1 H ( - 0) % Nucleated RBC % Not Reportable Neutrophils # (Manual) 6.7 H (1.5-6.6) 10^3/uL Lymphocytes # (Manual) 1.4 L (1.5-3.5) 10^3/uL Monocytes # (Manual) 0.7 (0.0-1.0) 10^3/uL Eosinophils # (Manual) 0.0 (0-0.7) 10^3/uL Basophils # (Manual) 0.0 (0-0.1) 10^3/uL Differential Comment MANUAL DIFFERENTIAL Platelet Estimate NORMAL (130-450,000) (NORMAL) RBC Morph Micro Appear NORMAL APPEARANCE (NORMAL) Sodium 140 140 (135-145) mmol/L Potassium 3.0 L 3.2 L (3.5-5.0) mmol/L Chloride 109 110 (101-111) mmol/L Carbon Dioxide 21 21 (21-32) mmol/L Anion Gap 10.0 9.0 (6-13) BUN 9 10 (6-20) mg/dL Creatinine 1.2 H 1.3 H (0.4-1.0) mg/dL Estimated GFR (MDRD) 45 L 41 L (>89) Glucose 86 94 (70-100) mg/dL Calcium 7.5 L 7.1 L (8.5-10.3) mg/dL Phosphorus 2.6 2.5 (2.5-4.6) mg/dL Magnesium 1.7 1.7 (1.7-2.8) mg/dL ABX Reporting Has patient been on IV antibiotics over the past 48 hours?: Yes Assessment/Plan - Problem List (1) Sepsis Impression: This is believed to be secondary to urinary tract infection. This is present on admission and she has continued to improve on daily basis. She remains afebrile with an improving white count. Cultures have been negative to date and unfortunately urine culture was never obtained as the initial urine sample was dirty catch. We will de-escalate to oral ciprofloxacin this evening and monitor her over the next 24 hours to ensure she remains afebrile. (2) Urinary tract infection Impression: This is believed to be a source of her sepsis. She has improved with IV Zosyn. Unfortunately do not have a urine culture as the initial urine sample was not a clean-catch. Given her clinical improvement, will transition her to oral ciprofloxacin today and monitor ove rnext 24 hours. Qualifiers: Urinary tract infection type: acute cystitis Hematuria presence: without hematuria Qualified Code(s): N30.00 - Acute cystitis without hematuria (3) Abdominal pain Impression: This has resolved and the etiology is not clear at the moment. This may have been herpetic pain although there are no obvious vesicles at the moment. A CT did not show any acute abnormality except for the left renal mass which is known. We will continue to monitor for the time being. Qualifiers: Abdominal location: left lower quadrant Qualified Code(s): R10.32 - Left lower quadrant pain (4) EDITH (acute kidney injury) Impression: Creatinine continues to improve and is now down to 1.1. This was likely secondary to ATN given her hypotension on admission. We will continue to gently diurese her given she is still slightly hypervolemic. Continue to monitor her renal function and urine output. (5) Pulmonary vascular congestion Impression: No longer hypoxic and saturating well on room air. This was likely secondary to the amount of IV fluids she received given her hypotension on admission. We will obtain echocardiogram today and continue to gently diurese her. (6) Altered mental status Impression: This has also resolved. Suspect this was secondary to her sepsis as well as poor Lyrica clearance given her acute kidney injury. She now is back to her baseline. We will continue to monitor. Qualifiers: Altered mental status type: transient alteration of awareness Qualified Code(s): R40.4 - Transient alteration of awareness (7) Anemia Impression: Globin this morning is 9.7 which is improved compared to yesterday. She has been stable at around 10. She was 15 on admission and this was likely due to hemoconcentration. No obvious signs of bleeding at the moment. We will continue to monitor her CBC while she is hospitalized. (8) Hypothyroidism Impression: Stable. Continue Synthroid. (9) Shingles Impression: She was treated for shingles on outpatient basis but reports she has not taken the valacyclovir. There are no obvious open vesicles at this moment but she would like to resume her valacyclovir. We will restart her on this today. She reports she is scheduled to follow-up with infectious disease on outpatient basis. (10) Hypokalemia Impression: Continue to supplement. She will likely need supplementation on discharge.
[2019-08-21] MEDS: ACETAMINOPHEN 325 MG TABLET PO PRN (17:28)
[2019-08-21] MEDS: CIPROFLOXACIN 250 MG TABLET PO SCH (20:53)
[2019-08-21] MEDS: ZINC OXIDE 20% OINT 30 GM TUBE TOP SCH (20:54)
[2019-08-21] MEDS: LATANOPROST 0.005% OPHTH DROPS EACHEYE SCH (21:05)
[2019-08-22] MEDS: PROCHLORPERAZINE 10 MG/2 ML VIAL IVP PRN ×2 (01:40→07:53)
[2019-08-22] MEDS: SODIUM CHLORIDE FLUSH 0.9% 10 ML SYRINGE IVP SCH ×2 (02:39→09:39)
[2019-08-22 05:51] LABS: BASOPHILS % (AUTO) 0.6 %; EOSINOPHILS % (AUTO) 2.1 %; HGB - HEMOGLOBIN 9.2 g/dL (12.0-16.0); LYMPHOCYTES % (AUTO) 11.8 %; MEAN CORPUSCULAR HEMOGLOBIN 28.4 pg (27.0-31.0); MEAN CORPUSCULAR HGB CONC 32.7 g/dL (32.0-36.0); MEAN CORPUSCULAR VOLUME 86.7 fL (81.0-99.0); MEAN PLATELET VOLUME 9.9 fL (7.9-10.8); MONOCYTES % (AUTO) 8.5 %; PLT - PLATELET COUNT 426 10^3/uL (130-450); RED BLOOD COUNT 3.24 10^6/uL (4.20-5.40); RED CELL DISTRIBUTION WIDTH 12.6 % (12.0-15.0); WHITE BLOOD COUNT 10.8 x10^3/uL (4.8-10.8)
[2019-08-22 05:54] LABS: ABNORMAL LYMPHS % (MANUAL) 0 %
[2019-08-22 05:57] LABS: CALCIUM 7.6 mg/dL (8.5-10.3); CREATININE 1.2 mg/dL (0.4-1.0)
[2019-08-22 06:13] LABS: BAND NEUTROPHILS % (MANUAL) 3 %; EOSINOPHILS # (MANUAL) 0.2 10^3/uL (0-0.7); LYMPHOCYTES # (MANUAL) 1.1 10^3/uL (1.5-3.5); LYMPHOCYTES % (MANUAL) 10 %; METAMYELOCYTES % (MANUAL) 1 %; MONOCYTES # (MANUAL) 0.6 10^3/uL (0.0-1.0); MYELOCYTES % (MANUAL) 1 %; PLATELET ESTIMATE, MANUAL NORMAL (130-450,000) (NORMAL); RBC MORPHOLOGY (MULTIPLE) NORMAL APPEARANCE (NORMAL)
[2019-08-22 06:14] LABS: DIFFERENTIAL COMMENT MANUAL DIFFERENTIAL
[2019-08-22] MEDS: LEVOTHYROXINE 75 MCG TABLET PO SCH (06:54)
[2019-08-22 07:53] VITALS: BP 148/72
[2019-08-22] MEDS ORDERED: POTASSIUM CHLORIDE 20 MEQ TABLET PO SCH (08:00)
[2019-08-22] MEDS ORDERED: LOSARTAN 50 MG TABLET PO SCH (09:00)
--- NOTE | 2019-08-22 09:11 | Discharge Plan ---
Discharge Plan Problem Reviewed?: Yes Disposition: Home, Self Care Condition: Stable Prescriptions: Ciprofloxacin [Cipro] 500 mg PO BID 4 Days #8 tablet Ondansetron Odt [Zofran Odt] 4 mg TL Q6H PRN #14 tablet PRN Reason: Nausea / Vomiting Potassium Chloride [K-Dur] 20 meq PO DAILYWM #30 tablet Pregabalin [Lyrica] 75 mg PO TID #42 capsule Diet: Regular Activity Restrictions: Activity as Tolerated Health Concerns: You were admitted to the hospital because you had a severe urinary tract infection. This infection led to what is called sepsis which is a significant immune response to an ongoing infection. You required to stay in the intensive care unit for IV antibiotics. You received multiple liters of fluid with improvement in your blood pressure. Fortunately, he did not require medications to help support your blood pressure. Your kidney function did decrease slightly due to this infection but they have since improved. Your signs of infection have also improved over the last few days and you are now stable on oral antibiotics. You were tested for COVID-19 twice and this was negative. You did have some difficulty breathing because of the amount of fluid we gave you. An ultrasound of your heart showed that it was functioning well. We gave you IV water pills which helped remove some of this fluid and this improved your breathing. Plan of Treatment: Please take the ciprofloxacin as prescribed twice daily for 4 more days. This is to complete therapy for the treatment of your urinary tract infection. You may continue your losartan but please stop taking your hydrochlorothiazide as your blood pressure has been stable. Your potassium has been on the lower side and so we will prescribe you potassium supplementation to take on a daily basis. Stopping your hydrochlorothiazide should also help as this causes lower potassium. You were also prescribed nausea medication called Zofran to take as needed. It is recommended that you decrease your Lyrica dose to 75 mg 3 times a day instead of 150 mg 3 times a day. Care Goals: Please follow-up with your primary care physician within 1 week. It is recommended that you have repeat labs done at that time to make sure your kidney function is stable as well as your blood counts. Assessment: The patient expressed understanding of the treatment plan and goals of care. Additional Instructions or Follow Up instructions: Please follow-up with your primary care physician within 1 week. Please return to the emergency department if you develop fevers, chills, dizziness, lightheadedness or worsening nausea/vomiting. No Smoking: If you smoke, Please STOP! Call for help. Follow-up with: Ihsan Mckeon MD [Primary Care Provider] -
[2019-08-22] MEDS: valACYclovir 500 MG TABLET PO SCH (09:38)
[2019-08-22] MEDS: PREGABALIN 25 MG CAPSULE PO SCH (09:38)
[2019-08-22] MEDS: CIPROFLOXACIN 250 MG TABLET PO SCH (09:38)
[2019-08-22] MEDS: TIMOLOL 0.5% OPHTH DROPS EACHEYE SCH (09:39)
[2019-08-22] MEDS: ZINC OXIDE 20% OINT 30 GM TUBE TOP SCH (09:39)
[2019-08-22] MEDS: DORZOLAMIDE 2% OPHTH DROPS EACHEYE SCH (09:39)
--- NOTE | 2019-08-22 10:33 | DISCHARGE SUMMARY ---
Discharge Summary Admit Date: 08/16/19 Discharge Date: 08/22/19 Discharging Provider: Carlos Phillips Primary Care Provider: Ihsan Mckeon Code Status: Attempt Resuscitation Condition at Discharge: Stable Discharge Disposition: 01 Home, Self Care - DIAGNOSES Admission Diagnoses: Severe sepsis Urinary tract infection Dehydration Acute kidney injury Nausea, vomiting Diarrhea Syncope Hypokalemia Hyponatremia Cough Desaturation of oxygen Altered mental status Shingles Hypothyroidism History of hypertension Elevated bilirubin Discharge Diagnoses with Status of Each Condition: Sepsis - resolved. Urinary tract infection - improving. Continue ciprofloxacin for 4 more days. Abdominal pain - resolved. EDITH - resolved. Pulmonary vascular congestion - resolved. Altered mental status - resolved. Anemia - stable. Hypothyroidism - stable. Shingles - stable. Hypokalemia - stable. Discharged on oral supplementation. Fibromyalgia - stable. Lyrica dose was decreased 75 mg 3 times daily. She was provided with 42 capsules of 75 mg. Hypertension - stable. Continue losartan but discontinue hydrochlorothiazide. Left renal mass - stable. This is a known mass and she will continue outpatient follow-up as scheduled. - HPI History of Present Illness: H&P per Dr. Mcmillan on 08/16/19: This is a 63-year-old, white female with a history of shingles, for which she was recently started on valacyclovir. She has a history of Synthroid, glaucoma and hypertension, is on HCTZ and an ARB. Patient called an ambulance after feeling weak and having a syncopal episode, was walking and has syncope and hit her head. She has been having 3 days of nausea, vomiting and diarrhea in the ambulance documented fever at home of 102.5. She presented to the emergency room by ambulance, she is found to have tachycardia with a heart rate of 121, fever of 37.7 which later increased to 40.2 C, and she did have desaturation to 88% on room air. She did admit to a cough but was confused and disoriented in the ER and unsteady on her feet when trying to go to the bathroom in the emergency room. Her work-up showed that she has a urinary tract infection with abnormal urinalysis, hypokalemia and acute kidney injury. She had imaging done of her head and C-spine because of the syncope, and this showed no acute findings. She has been started on IV fluids, potassium replacement and IV antibiotics. - HOSPITAL COURSE Hospital Course: She was admitted to the floor for sepsis secondary to urinary tract infection. She initially treated with ceftriaxone IV. There was concern for COVID-19 given her fevers and this came back negative. Given her chest x-ray was concerning fo r initial pneumonia, this was presumed to be a false negative. She had increasing oxygen requirement and required nasal cannula initially and was then later placed on a Ventimask. She also became increasingly hypotensive and required transfer to the intensive care unit. Antibiotics were broadened to vancomycin, ceftriaxone, and azithromycin given the concern for pneumonia as well as worsening urinary tract infection. Her acute kidney injury improved with IV fluids. It was felt that her syncope was secondary to orthostasis. She was checked again for COVID-19 and a second test came back negative. A repeat chest x-ray was more consistent with pulmonary vascular congestion. She completed 3 days of azithromycin. She was started on Zosyn and start ceftriaxone given the hypotension. Fortunately, she did not require vasopressors during her hospitalization. Hemoglobin did drop but this was felt it was hemodilution all given she was +13 L since admission and was likely hemoconcentrated to begin with given her dehydration. It was also felt that her pulmonary vascular congestion was secondary to the positive fluid balance. Echocardiogram was obtained which showed some elevated right heart pressures but a preserved ejection fraction. Her blood cultures came back negative. Unfortunately, her initial urine sample was dirty catch and therefore was never sent for culture. A repeat urinalysis was obtained which showed WBCs but no bacteria. She did become encephalopathic during her hospitalization is felt that this was secondary to her Lyrica and Ambien given her acute kidney injury as well. These were held and her mental status improved. She has returned back to baseline prior to discharge. Given we do not have any cultures from her urinary tract infection, Zosyn was transitioned to ciprofloxacin orally. She remained afebrile with no white count while on ciprofloxacin. We did rule out C. difficile during this hospitalization. It was ultimately felt that she did not have COVID-19 as initial chest x-ray and CT of the chest did not show any infiltrates and when chest x-ray did show infiltrates, it is likely secondary to the amount of IV fluid she received and was likely pulmonary vascular congestion. She did have abdominal pain 2 days prior to discharge that was severe in nature. A CT of the abdomen pelvis was obtained which did not show any acute abnormalities. It did show a known left renal mass. Abdominal pain resolved without any intervention. She was diuresed intravenously for 3 days given amount of IV fluids she received at that that she had some lower extremity edema as well as edema in her bilateral hands. It was felt that this was contr ibuting to her hypokalemia. She was discharged on ciprofloxacin 500 mg twice daily for 4 more days to complete 10 days of therapy for presumed urinary tract infection/pyelonephritis. She was also prescribed potassium 20 mEq daily given her hypokalemia. She was asked to discontinue her hydrochlorothiazide given her blood pressure has been stable on just the losartan. I also provided her with 42 tablets of Lyrica 75 mg 3 times daily. We decided to decrease her dose from 150 mg 3 times daily and she was agreeable to this. - ALLERGIES Allergies/Adverse Reactions: Allergies Allergy/AdvReac Type Severity Reaction Status Date / Time adhesive Allergy Severe Rash Verified 08/16/19 05:35 latex Allergy Severe Rash Verified 08/16/19 05:35 morphine Allergy Severe Respiratory Verified 08/16/19 05:35 Sulfa (Sulfonamide Allergy Severe anaphylaxis Verified 08/16/19 05:35 Antibiotics) - MEDICATIONS Home Medications: Ambulatory Orders Medication Instructions Recorded Confirmed Cyclobenzaprine [Flexeril] 10 mg PO TID PRN 03/26/13 08/16/19 Levothyroxine [Synthroid] 75 mcg PO QDAC 03/26/13 08/16/19 Losartan [Cozaar] 100 mg PO DAILY 03/26/13 08/16/19 Zolpidem [Ambien] 10 mg PO QPM 03/26/13 08/16/19 Valacyclovir HCl [Valacyclovir] 500 mg PO Q12H 08/16/19 08/16/19 Ciprofloxacin [Cipro] 500 mg PO BID 4 Days #8 tablet 08/22/19 Ondansetron Odt [Zofran Odt] 4 mg TL Q6H PRN #14 tablet 08/22/19 Potassium Chloride [K-Dur] 20 meq PO DAILYWM #30 tablet 08/22/19 Pregabalin [Lyrica] 75 mg PO TID #42 capsule 08/22/19 - PHYSICAL EXAM AT DISCHARGE General Appearance: positive: No acute distress, Alert Eyes Bilateral: positive: Normal inspection ENT: positive: ENT inspection nml Neck: positive: Nml inspection Respiratory: positive: No respiratory distress. negative: Wheezes, Rales Cardiovascular: positive: Regular rate & rhythm, No murmur. negative: Tachycardia, Bradycardia, Systolic murmur, Diastolic murmur Abdomen: positive: Non-tender, No distention. negative: Tenderness Skin: positive: Warm, Dry Extremities: positive: Full ROM, Pedal edema (She does have trace pitting edema in the bilateral lower extremities. She also has about +1 pitting edema in her bilateral upper extremities at the hand up to the mid forearm.) Neurologic/Psychiatric: positive: Oriented x3. negative: Disoriented to person, Disoriented to place, Disoriented to time - LABS Result Diagrams: 08/22/19 05:30 08/22/19 05:30 - DIAGNOSTIC IMAGING Diagnostic Imaging Results: Final report reviewed - SEPSIS Current Stage of Sepsis: Resolved Sepsis Criteria: Recorded Temperature greater than 38.3C or Less than 36C, Recorded Heart Rate greater than 90 bpm, WBC count greater than 12,000 or less than 4000, BLADE CHANGER: altered consciousness (unrelated to primary neuro pathology), Renal: urine output less than 0.5ml/kg/hr for 2 hours or creatinine gr - FOLLOW UP Follow Up: She was asked to follow-up with her primary care physician within 1 week for repeat labs including BMP and CBC. - TIME SPENT Time Spent in Discharge (Minutes): 40
== END 2019-08-22 12:23 | disposition home or self-care (01) | DRG 871 ==
LOC: EDUNIT# → ED 05:29 → MS2 12:16 → ICU 08-17 02:15 → MS2 08-20 21:50
PROVIDERS: ADMIT Internal Medicine; ATTEND Internal Medicine
PROC: 02HV33Z Insertion of Infusion Device into Superior Vena Cava, Percutaneous Approach (ICD-10-PCS; principal; 2019-08-17)
DX: A41.9 Sepsis, unspecified organism (principal); N17.0 Acute kidney failure with tubular necrosis; G92 Toxic encephalopathy; N30.00 Acute cystitis without hematuria; E87.1 Hypo-osmolality and hyponatremia; R17 Unspecified jaundice; R65.20 Severe sepsis without septic shock; R09.89 Other specified symptoms and signs involving the circulatory and respiratory systems; I95.9 Hypotension, unspecified; D64.9 Anemia, unspecified; E87.6 Hypokalemia; E86.0 Dehydration; B02.9 Zoster without complications; R10.32 Left lower quadrant pain; R19.7 Diarrhea, unspecified; R11.2 Nausea with vomiting, unspecified; E03.9 Hypothyroidism, unspecified; M79.7 Fibromyalgia; I10 Essential (primary) hypertension; E66.9 Obesity, unspecified; Z68.38 Body mass index [BMI] 38.0-38.9, adult; H40.9 Unspecified glaucoma; T42.6X5A Adverse effect of other antiepileptic and sedative-hypnotic drugs, initial encounter; Y92.230 Patient room in hospital as the place of occurrence of the external cause; Z20.828 Contact with and (suspected) exposure to other viral communicable diseases
CPT/HCPCS: 36415; 36600; 70450; 71045; 71046; 71250; 72125; 74176; 80048; 80053; 81001; 82040; 82803; 83605; 83690; 83735; 83880; 84100; 84132; 84443; 84484; 85025; 85379; 85610; 87040; 87045; 87046; 87086; 87150; 87275; 87276; 87493; 87635; 93005; 93306; 94660; 96365; 96366; 99284; 99285; A9270; J3370; 81003; 81599

== ENCOUNTER 2021-01-19 00:07 | Outpatient (CLI) | payer OTHER | END 2021-01-19 00:08 | disposition short-term general hospital (02) | LOC: EMS 00:07 | DX: R10.30 Lower abdominal pain, unspecified (principal); R30.9 Painful micturition, unspecified | CPT/HCPCS: A0425; A0429 ==